=== PATIENT | male | born 1950 | race Two or more races ===

== ENCOUNTER 2021-10-15 21:51 | Inpatient (IN) | payer OTHER ==
[~2021-10-15] VITALS: Ht 157.5 cm; Wt 93.8 kg
[2021-10-15] MEDS: POTASSIUM CHL 20MEQ/50ML 50 ML IV SCH (00:20)
[2021-10-15] MEDS ORDERED: GLYCOPYRROLATE 0.2 MG/ML 1ML VIAL IV ONE (22:00)
[2021-10-15] MEDS ORDERED: GLYCOPYRROLATE 0.2 MG/ML 1ML VIAL ONE (22:09)
[2021-10-15] MEDS ORDERED: SODIUM CHLORIDE 0.9% 500 ML IV ONE (22:15)
[2021-10-15] MEDS ORDERED: ONDANSETRON HCL 4 MG/2 ML VIAL IV ONE (22:15)
[2021-10-15] MEDS ORDERED: LORazepam 2MG/ML-1ML VIAL IV ONE (22:30)
[2021-10-15] MEDS: DOPamine 1600MCG/ML D5W 250 ML IV SCH (22:31)
[2021-10-15 22:50] LABS: Mean Corpuscular Hgb Conc. 30.4 g/dL (32.0-36.0); Red Blood Cells 0.91 10^6/uL (4.5-5.90)
[2021-10-15 22:53] LABS: Hematocrit 9.6 % (41.0-53.0); Mean Corpuscular Hemoglobin 32.3 pg (28.0-32.0); Mean Corpuscular Volume 106.3 fL (80.0-100.0)
[2021-10-15 23:05] LABS: Hemoglobin 2.9 g/dL (13.5-17.5); White Blood Cell 1.5 10^3/uL (4.4-10.8)
[2021-10-15 23:06] LABS: Basophils % (manual) 0 (0.0-2.0); Blast Cells 0; Eosinophils % (manual) 0 (0-7); Metamyelocytes % 0; Myelocytes % 0; Promyelocytes % 0; Reactive Lymphocytes 0
[2021-10-15 23:09] LABS: Anion Gap 13 (5-15); BUN/Creatinine Ratio 15.5; Blood Urea Nitrogen 47 mg/dL (7-18); Chloride 137 mmol/L (98-107); GFR African American 26 mL/min; GFR Non-African American 22 mL/min; Glucose 58 mg/dL (74-106); Sodium 153 mmol/L (136-145)
[2021-10-15 23:14] LABS: Alanine Aminotransferase 18 U/L (16-61); Alkaline Phosphatase 45 U/L (45-117); Aspartate Aminotransferase 17 U/L (15-37); Bilirubin, Total 0.2 mg/dL (0.2-1.0); Total Protein 2.3 g/dL (6.4-8.2)
[2021-10-15 23:22] LABS: Albumin 0.8 g/dL (3.4-5.0); Calcium < 6.0 mg/dL (8.5-10.1); Carbon Dioxide 3 mmol/L (21-32); Potassium 2.4 mmol/L (3.5-5.1)
[2021-10-15] MEDS ORDERED: CALCIUM GLUC 1,000mg/50ml-NS 50 ML IV ONE (23:45)
[2021-10-15] MEDS ORDERED: SODIUM BICARBONATE 8.4 % INJ 50ML VIAL IV ONE (23:45)
[2021-10-15] MEDS ORDERED: ALBUMIN 25% 100 ML IV ONE (23:45)
[2021-10-16] VITALS (13 sets, daily range): BP systolic 102–144; BP diastolic 43–77
[2021-10-16] MEDS ORDERED: SODIUM BICARBONATE 8.4% INJ 50ML SYRINGE ONE (00:18)
[2021-10-16] MEDS ORDERED: FUROSEMIDE 20 MG/2 ML VIAL IV ONE (00:30)
[2021-10-16] MEDS ORDERED: DOCUSATE SOD 100 MG CAP PO PRN (00:30)
[2021-10-16] MEDS ORDERED: ACETAMINOPHEN 325 MG TAB PO PRN (00:30)
[2021-10-16] MEDS ORDERED: ONDANSETRON HCL 4 MG/2 ML VIAL IV PRN (00:30)
[2021-10-16] MEDS ORDERED: DEXTROSE (50%) 50ML SYRG IV PRN (00:30)
[2021-10-16] MEDS ORDERED: HYDROcodone-ACET 5/325MG TAB PO PRN (00:30)
[2021-10-16 01:11] LABS: Band Neutrophils % (manual) 9; Lymphocytes % (manual) 15 (10.0-50.0)
[2021-10-16 01:12] LABS: Monocytes % (manual) 8 (0-12)
[2021-10-16] MEDS: POTASSIUM CHL 20MEQ/50ML 50 ML IV SCH (02:20)
[2021-10-16] MEDS ORDERED: NITROGLYCERIN 0.4 MG SL TAB SL PRN (03:30)
[2021-10-16] MEDS ORDERED: MORPHINE SULFATE INJECTION 2 MG/ML SYRG IV PRN (03:30)
[2021-10-16] MEDS: ACCU-CHEK COMFORT CURVE STRIP VI SCH ×5 (04:00→21:57)
[2021-10-16] MEDS: InsuLIN REG 1unit/0.01ml Soln (100units/ml) SC SCH ×5 (04:00→21:57)
[2021-10-16] MEDS: SODIUM CHLOR 0.9% PF (SALINE LOCK) 10ML VIAL/SYR IV SCH ×2 (06:00→14:19)
[2021-10-16] MEDS: MIDODRINE HCL 10 MG TAB PO SCH ×3 (06:30→22:31)
[2021-10-16] MEDS ORDERED: FUROSEMIDE 20 MG/2 ML VIAL IV SCH (10:00)
[2021-10-16] MEDS: ASCORBIC ACID 500 MG TAB PO SCH ×2 (10:30→22:31)
[2021-10-16] MEDS: ZINC SULFATE 220mg CAP or TAB PO SCH (10:30)
[2021-10-16] MEDS: MULTIPLE VITAMIN TAB PO SCH (10:30)
[2021-10-16] MEDS: FAMOTIDINE (10MG/ML) 2ML VL IV SCH ×2 (14:19→22:30)
[2021-10-16] MEDS ORDERED: SODIUM BICARBONATE 50ML VIAL 100 ML, POTASSIUM CHLORIDE 20 MEQ in D5W 5% 1,000 ML IV SCH (16:45)
[2021-10-16] MEDS ORDERED: levoFLOXacin 250MG 50 ML IV SCH (16:45)
[2021-10-16] MEDS ORDERED: FUR20T PO (18:12)
[2021-10-16 18:48] LABS: Basophils # (auto) 0 10 ^3/uL (0-0.2); Basophils % (auto) 0.2 % (0.0-2.0); Eosinophils # (auto) 0 10 ^3/uL (0-0.8); Eosinophils % (auto) 0.1 % (0.0-7.0); Hematocrit 36.3 % (41.0-53.0); Hemoglobin 11.9 g/dL (13.5-17.5); Lymphocytes # (auto) 0.5 10 ^3/uL (0.4-5.4); Lymphocytes % (auto) 9.1 % (10.0-50.0); Mean Corpuscular Hemoglobin 30.7 pg (28.0-32.0); Mean Corpuscular Hgb Conc. 32.9 g/dL (32.0-36.0); Mean Corpuscular Volume 93.3 fL (80.0-100.0); Monocytes # (auto) 0.6 10 ^3/uL (0-1.3); Monocytes % (auto) 11.4 % (0.0-12.0); Neutrophils # (auto) 4.1 10 ^3/uL (1.6-8.6); Neutrophils % (auto) 79.2 % (37.0-80.0); Nucleated Red Blood Cells % 0.1 %; Red Blood Cells 3.89 10^6/uL (4.5-5.90); Red Cell Distribution Width 17.3 % (11.8-14.3); White Blood Cell 5.2 10^3/uL (4.4-10.8)
[2021-10-16] MEDS ORDERED: NIFE1TAB31 PO (19:00)
[2021-10-16] MEDS ORDERED: CALC-440 PO (19:00)
[2021-10-16] MEDS ORDERED: FER325T PO (19:00)
[2021-10-16] MEDS ORDERED: METO-535 PO (19:00)
[2021-10-16] MEDS ORDERED: FOLI400T15 PO (19:00)
[2021-10-16] MEDS ORDERED: CHOL500035 PO (19:00)
[2021-10-16 19:02] LABS: INR 1.6 (0.9-1.15); Partial Thromboplastin Time 34.7 sec (23.6-33.0)
[2021-10-16 19:37] LABS: Albumin 2.9 g/dL (3.4-5.0); BUN/Creatinine Ratio 13.8; Bilirubin, Total 1.8 mg/dL (0.2-1.0); Total Protein 7.4 g/dL (6.4-8.2)
[2021-10-16 19:42] LABS: Calcium 5.5 mg/dL (8.5-10.1); Potassium 6.8 mmol/L (3.5-5.1)
[2021-10-16] MEDS ORDERED: SOD CHL 0.45% 1,000 ML IV ONE (19:45)
[2021-10-16] MEDS ORDERED: LORazepam 2MG/ML-1ML VIAL IV ONE (20:00)
[2021-10-16] MEDS ORDERED: CALCIUM GLUC 1,000mg/50ml-NS 50 ML IV ONE ×2 (20:30→22:15)
[2021-10-16] MEDS ORDERED: FUROSEMIDE 100 MG/10ML VIAL IV ONE (20:45)
[2021-10-16 21:19] LABS: Basophils # (auto) 0 10 ^3/uL (0-0.2); Basophils % (auto) 0.4 % (0.0-2.0); Eosinophils # (auto) 0 10 ^3/uL (0-0.8); Hematocrit 34.8 % (41.0-53.0); Hemoglobin 11.4 g/dL (13.5-17.5); Lymphocytes # (auto) 0.5 10 ^3/uL (0.4-5.4); Lymphocytes % (auto) 9.9 % (10.0-50.0); Mean Corpuscular Hgb Conc. 32.7 g/dL (32.0-36.0); Mean Corpuscular Volume 94.8 fL (80.0-100.0); Monocytes # (auto) 0.6 10 ^3/uL (0-1.3); Neutrophils # (auto) 4.3 10 ^3/uL (1.6-8.6); Neutrophils % (auto) 78.7 % (37.0-80.0); Nucleated Red Blood Cells % 0.1 %; Red Blood Cells 3.67 10^6/uL (4.5-5.90); White Blood Cell 5.5 10^3/uL (4.4-10.8)
[2021-10-16] MEDS: DOPamine 1600MCG/ML D5W 250 ML IV SCH (21:32)
[2021-10-16 22:04] LABS: Calcium 5.4 mg/dL (8.5-10.1); Potassium 6.6 mmol/L (3.5-5.1)
[2021-10-16] MEDS ORDERED: DEXTROSE (50%) 50ML SYRG IV ONE (22:15)
[2021-10-16] MEDS ORDERED: ALBUTEROL SULF 2.5 MG/0.5ML(0.5%) NEB SOLN NEB ONE (22:15)
[2021-10-16] MEDS ORDERED: InsuLIN REG 1unit/0.01ml Soln (100units/ml) IV ONE (22:15)
[2021-10-16 22:23] LABS: Urine Bacteria FEW /hpf (None Seen); Urine Blood 1+ /uL (Negative); Urine Specific Gravity 1.014 (1.001-1.035); Urine WBC 6 /hpf (0 - 3)
[2021-10-16] MEDS ORDERED: SODIUM BICARBONATE 8.4 % INJ 50ML VIAL IV ONE (22:30)
[2021-10-16] MEDS: SODIUM BICARBONATE 50ML VIAL 150 ML in D5W 5% 1,000 ML IV SCH (22:30)
[2021-10-16] MEDS: SODIUM ZIRCONIUM CYCL 10 GM PAK PO SCH (22:53)
[2021-10-17] MEDS: SODIUM CHLOR 0.9% PF (SALINE LOCK) 10ML VIAL/SYR IV SCH ×4 (01:05→23:50)
[2021-10-17] MEDS: InsuLIN REG 1unit/0.01ml Soln (100units/ml) SC SCH ×6 (02:39→20:00)
[2021-10-17] MEDS: ACCU-CHEK COMFORT CURVE STRIP VI SCH ×6 (02:39→23:19)
[2021-10-17] MEDS: MIDODRINE HCL 10 MG TAB PO SCH ×3 (06:00→18:00)
[2021-10-17 07:09] LABS: Basophils # (auto) 0 10 ^3/uL (0-0.2); Basophils % (auto) 0.6 % (0.0-2.0); Eosinophils # (auto) 0 10 ^3/uL (0-0.8); Eosinophils % (auto) 0.2 % (0.0-7.0); Lymphocytes # (auto) 0.6 10 ^3/uL (0.4-5.4); Lymphocytes % (auto) 11.8 % (10.0-50.0); Mean Corpuscular Hemoglobin 30.3 pg (28.0-32.0); Mean Corpuscular Hgb Conc. 32.3 g/dL (32.0-36.0); Monocytes # (auto) 0.7 10 ^3/uL (0-1.3); Monocytes % (auto) 12.7 % (0.0-12.0); Neutrophils # (auto) 3.9 10 ^3/uL (1.6-8.6); Neutrophils % (auto) 74.7 % (37.0-80.0); Nucleated Red Blood Cells % 0.1 %; Red Blood Cells 3.62 10^6/uL (4.5-5.90); Red Cell Distribution Width 17.8 % (11.8-14.3); White Blood Cell 5.2 10^3/uL (4.4-10.8)
[2021-10-17 07:15] LABS: Folate (Folic Acid) > 24.00 ng/mL (5.38-24)
[2021-10-17 07:16] LABS: Albumin 2.7 g/dL (3.4-5.0); BUN/Creatinine Ratio 13.8; Bilirubin, Total 1.6 mg/dL (0.2-1.0); Total Protein 6.4 g/dL (6.4-8.2)
[2021-10-17] MEDS: SODIUM ZIRCONIUM CYCL 10 GM PAK PO SCH ×3 (08:02→22:00)
[2021-10-17] MEDS: SODIUM BICARBONATE 50ML VIAL 150 ML in D5W 5% 1,000 ML IV SCH ×2 (08:51→23:28)
[2021-10-17] MEDS ORDERED: FUROSEMIDE 20 MG/2 ML VIAL IV SCH ×2 (10:00→20:00)
[2021-10-17 10:16] LABS: Potassium 6.3 mmol/L (3.5-5.1)
[2021-10-17 10:17] LABS: Calcium 5.5 mg/dL (8.5-10.1)
[2021-10-17 10:18] LABS: Phosphorus 10.7 mg/dL (2.5-4.90)
[2021-10-17] MEDS: ZINC SULFATE 220mg CAP or TAB PO SCH (11:30)
[2021-10-17] MEDS ORDERED: CALCIUM GLUC 1,000mg/50ml-NS 50 ML IV ONE (11:30)
[2021-10-17] MEDS: MULTIPLE VITAMIN TAB PO SCH (11:30)
[2021-10-17] MEDS: FAMOTIDINE (10MG/ML) 2ML VL IV SCH ×2 (11:30→23:50)
[2021-10-17] MEDS: ASCORBIC ACID 500 MG TAB PO SCH ×2 (11:30→22:00)
[2021-10-17] MEDS: CALCIUM ACETATE 667 MG CAP PO SCH ×2 (12:23→18:00)
[2021-10-17] MEDS ORDERED: DEXTROSE (50%) 50ML SYRG IV ONE ×2 (13:00→16:30)
[2021-10-17] MEDS ORDERED: ALBUTEROL SULF 2.5 MG/0.5ML(0.5%) NEB SOLN NEB ONE (13:00)
[2021-10-17] MEDS ORDERED: InsuLIN REG 1unit/0.01ml Soln (100units/ml) IV ONE (13:00)
[2021-10-17] MEDS: LORazepam 2MG/ML-1ML VIAL IV PRN (13:17)
[2021-10-17] MEDS: DOPamine 1600MCG/ML D5W 250 ML IV SCH (14:14)
[2021-10-17 14:29] LABS: Alcohol, Urine < 3.0 mg/dL (0-10); Amphetamine Screen, Urine NEGATIVE (NEGATIVE); Barbiturate Scree,Urine NEGATIVE (NEGATIVE); Benzodiazephine Screen, Urine NEGATIVE (NEGATIVE); Cannabinoid Screen, Urine NEGATIVE (NEGATIVE); Cocaine Screen, Urine NEGATIVE (NEGATIVE); Opiate Scree,Urine NEGATIVE (NEGATIVE); Phencyclidine Screen, Urine NEGATIVE (NEGATIVE)
[2021-10-17] MEDS ORDERED: DEXTROSE (50%) 50ML SYRG IV PRN (17:45)
[2021-10-17] MEDS ORDERED: ETOMIDATE (2MG/ML) 20ML VIAL IV ONE ×2 (18:44→19:15)
[2021-10-17] MEDS ORDERED: PROPOFOL 100 ML IV ONE (18:44)
[2021-10-17] MEDS ORDERED: SODIUM BICARBONATE 8.4% INJ 50ML SYRINGE ONE (18:44)
[2021-10-17] MEDS ORDERED: ROCURONIUM 10MG/ML 10ML VIAL IV ONE ×2 (18:44→19:15)
[2021-10-17] MEDS ORDERED: SODIUM CHLORIDE 0.9% 1,000 ML IV ONE (19:15)
[2021-10-17] MEDS ORDERED: SODIUM BICARBONATE 8.4 % INJ 50ML VIAL IV ONE (19:15)
[2021-10-17 19:20] VITALS: BP 99/68
[2021-10-17] MEDS: PROPOFOL 100 ML IV SCH (19:30)
[2021-10-17 21:55] VITALS: BP 151/67
[2021-10-17] MEDS: FUROSEMIDE 40 MG/4 ML VIAL IV SCH (23:14)
[2021-10-17 23:20] LABS: Albumin 2.2 g/dL (3.4-5.0); Potassium 4.3 mmol/L (3.5-5.1)
[2021-10-17 23:23] LABS: BUN/Creatinine Ratio 13.5; Bilirubin, Total 1.3 mg/dL (0.2-1.0); Total Protein 5.4 g/dL (6.4-8.2)
[2021-10-17 23:51] LABS: Calcium 5.2 mg/dL (8.5-10.1)
[2021-10-18] VITALS (9 sets, daily range): BP systolic 108–153; BP diastolic 52–70
[2021-10-18] MEDS: ACCU-CHEK COMFORT CURVE STRIP VI SCH ×6 (00:50→20:21)
[2021-10-18] MEDS: FUROSEMIDE 40 MG/4 ML VIAL IV SCH ×4 (02:22→20:22)
[2021-10-18] MEDS: InsuLIN REG 1unit/0.01ml Soln (100units/ml) SC SCH ×6 (04:00→20:00)
[2021-10-18] MEDS: MIDODRINE HCL 10 MG TAB PO SCH ×3 (06:45→19:00)
[2021-10-18] MEDS: SODIUM ZIRCONIUM CYCL 10 GM PAK PO SCH ×3 (06:45→23:17)
[2021-10-18] MEDS: SODIUM CHLOR 0.9% PF (SALINE LOCK) 10ML VIAL/SYR IV SCH ×3 (06:47→23:17)
[2021-10-18 07:04] LABS: Basophils # (auto) 0 10 ^3/uL (0-0.2); Basophils % (auto) 0.4 % (0.0-2.0); Eosinophils # (auto) 0 10 ^3/uL (0-0.8); Eosinophils % (auto) 0.3 % (0.0-7.0); Hematocrit 31.4 % (41.0-53.0); Hemoglobin 10.7 g/dL (13.5-17.5); Lymphocytes # (auto) 0.3 10 ^3/uL (0.4-5.4); Lymphocytes % (auto) 10.2 % (10.0-50.0); Mean Corpuscular Hemoglobin 31.1 pg (28.0-32.0); Mean Corpuscular Hgb Conc. 33.9 g/dL (32.0-36.0); Mean Corpuscular Volume 91.7 fL (80.0-100.0); Monocytes # (auto) 0.1 10 ^3/uL (0-1.3); Monocytes % (auto) 3.6 % (0.0-12.0); Neutrophils # (auto) 2.4 10 ^3/uL (1.6-8.6); Neutrophils % (auto) 85.5 % (37.0-80.0); Nucleated Red Blood Cells % 0.1 %; Red Blood Cells 3.42 10^6/uL (4.5-5.90); Red Cell Distribution Width 17.4 % (11.8-14.3); White Blood Cell 2.8 10^3/uL (4.4-10.8)
[2021-10-18 07:29] LABS: BUN/Creatinine Ratio 14.3
[2021-10-18] MEDS: CALCIUM ACETATE 667 MG CAP PO SCH ×3 (08:00→18:49)
[2021-10-18 08:13] LABS: Calcium 5.1 mg/dL (8.5-10.1)
[2021-10-18] MEDS: SODIUM BICARBONATE 50ML VIAL 150 ML in D5W 5% 1,000 ML IV SCH (08:15)
[2021-10-18] MEDS: MEROPENEM 500MG IVPB 50 ML IV SCH (10:28)
[2021-10-18] MEDS: ZINC SULFATE 220mg CAP or TAB PO SCH (11:20)
[2021-10-18] MEDS: MULTIPLE VITAMIN TAB PO SCH (11:21)
[2021-10-18] MEDS: ASCORBIC ACID 500 MG TAB PO SCH ×2 (11:21→23:18)
[2021-10-18] MEDS: DOPamine 1600MCG/ML D5W 250 ML IV SCH (13:35)
[2021-10-18] MEDS ORDERED: CALCIUM GLUC 1,000mg/50ml-NS 50 ML IV ONE (19:15)
[2021-10-18] MEDS ORDERED: SODIUM CHLORIDE 0.9% 1,000 ML IV SCH (19:30)
[2021-10-18] MEDS: DexAMETHasone SOD PHOS 10MG/1ML VIAL INJ IV SCH (19:57)
[2021-10-18] MEDS: PROPOFOL 100 ML IV SCH (19:58)
[2021-10-18] MEDS: D5W/SOD CHLO 0.9% 1,000 ML IV SCH (21:09)
[2021-10-18 22:32] LABS: Anion Gap 16 (5-15); BUN/Creatinine Ratio 14.6; Carbon Dioxide 29 mmol/L (21-32); Chloride 99 mmol/L (98-107); GFR African American 8 mL/min; GFR Non-African American 7 mL/min; Glucose 95 mg/dL (74-106); Potassium 3.8 mmol/L (3.5-5.1); Sodium 144 mmol/L (136-145)
[2021-10-18 23:07] LABS: Blood Urea Nitrogen 120 mg/dL (7-18)
[2021-10-18 23:49] LABS: Calcium < 5.0 mg/dL (8.5-10.1)
[2021-10-19] VITALS (40 sets, daily range): BP systolic 119–168; BP diastolic 55–90
[2021-10-19] MEDS ORDERED: CALCIUM GLUC 1,000mg/50ml-NS 50 ML IV ONE ×2 (00:15→12:30)
[2021-10-19] MEDS: ACCU-CHEK COMFORT CURVE STRIP VI SCH ×6 (00:44→23:07)
[2021-10-19] MEDS: InsuLIN REG 1unit/0.01ml Soln (100units/ml) SC SCH ×5 (00:44→18:00)
[2021-10-19] MEDS: PROPOFOL 100 ML IV SCH ×5 (00:58→23:06)
[2021-10-19] MEDS: FUROSEMIDE 40 MG/4 ML VIAL IV SCH ×4 (03:23→23:06)
[2021-10-19] MEDS: SODIUM CHLOR 0.9% PF (SALINE LOCK) 10ML VIAL/SYR IV SCH ×3 (06:41→23:06)
[2021-10-19] MEDS: MIDODRINE HCL 10 MG TAB PO SCH ×3 (06:42→18:00)
[2021-10-19 07:06] LABS: Immunoglobulin G, Serum 1211 mg/dL (603-1613)
[2021-10-19] MEDS: CALCIUM ACETATE 667 MG CAP PO SCH ×3 (07:56→18:15)
[2021-10-19] MEDS: DOPamine 1600MCG/ML D5W 250 ML IV SCH (08:31)
[2021-10-19 08:44] LABS: Basophils # (auto) 0 10 ^3/uL (0-0.2); Basophils % (auto) 0.1 % (0.0-2.0); Eosinophils # (auto) 0 10 ^3/uL (0-0.8); Hematocrit 32.5 % (41.0-53.0); Hemoglobin 10.9 g/dL (13.5-17.5); Lymphocytes # (auto) 0.5 10 ^3/uL (0.4-5.4); Lymphocytes % (auto) 6.6 % (10.0-50.0); Mean Corpuscular Hemoglobin 30.9 pg (28.0-32.0); Mean Corpuscular Hgb Conc. 33.5 g/dL (32.0-36.0); Mean Corpuscular Volume 92.2 fL (80.0-100.0); Monocytes # (auto) 0.2 10 ^3/uL (0-1.3); Monocytes % (auto) 2.4 % (0.0-12.0); Neutrophils # (auto) 6.2 10 ^3/uL (1.6-8.6); Neutrophils % (auto) 90.9 % (37.0-80.0); Nucleated Red Blood Cells % 0.1 %; Red Blood Cells 3.52 10^6/uL (4.5-5.90); White Blood Cell 6.9 10^3/uL (4.4-10.8)
[2021-10-19 09:25] LABS: Chloride 101 mmol/L (98-107); Sodium 141 mmol/L (136-145)
[2021-10-19 09:31] LABS: Anion Gap 11 (5-15); BUN/Creatinine Ratio 13.5; Carbon Dioxide 29 mmol/L (21-32); GFR African American 9 mL/min; GFR Non-African American 7 mL/min; Glucose 165 mg/dL (74-106)
[2021-10-19 09:47] LABS: Blood Urea Nitrogen 109 mg/dL (7-18); Calcium < 5.0 mg/dL (8.5-10.1)
[2021-10-19] MEDS: D5W/SOD CHLO 0.9% 1,000 ML IV SCH (10:20)
[2021-10-19] MEDS: MEROPENEM 500MG IVPB 50 ML IV SCH (10:20)
[2021-10-19] MEDS: DexAMETHasone SOD PHOS 10MG/1ML VIAL INJ IV SCH (10:28)
[2021-10-19] MEDS: MULTIPLE VITAMIN TAB PO SCH (10:29)
[2021-10-19] MEDS: ASCORBIC ACID 500 MG TAB PO SCH ×2 (10:29→23:06)
[2021-10-19] MEDS: ZINC SULFATE 220mg CAP or TAB PO SCH (10:29)
[2021-10-19 14:09] LABS: Hepatitis A Ab IgM Negative; Hepatitis B Core IgM Negative; Hepatitis C Antibody Negative (Negative)
[2021-10-19] MEDS: SOD CHL 0.45% 1,000 ML IV SCH ×2 (15:00→23:07)
[2021-10-19] MEDS ORDERED: VANCOMYCIN 1GM/250ML 250 ML IV ONE (17:15)
[2021-10-19] MEDS ORDERED: VANCOMYCIN PER PHARMACY 0 MG IV SCH (17:15)
[2021-10-20] VITALS (82 sets, daily range): BP systolic 126–163; BP diastolic 32–72
[2021-10-20] MEDS: InsuLIN REG 1unit/0.01ml Soln (100units/ml) SC SCH ×5 (00:11→23:18)
[2021-10-20] MEDS: FUROSEMIDE 40 MG/4 ML VIAL IV SCH ×4 (02:47→23:08)
[2021-10-20 04:31] LABS: Basophils # (auto) 0 10 ^3/uL (0-0.2); Eosinophils # (auto) 0 10 ^3/uL (0-0.8); Hematocrit 31.6 % (41.0-53.0); Hemoglobin 10.5 g/dL (13.5-17.5); Lymphocytes # (auto) 0.7 10 ^3/uL (0.4-5.4); Lymphocytes % (auto) 9.8 % (10.0-50.0); Mean Corpuscular Hemoglobin 30.8 pg (28.0-32.0); Mean Corpuscular Hgb Conc. 33.1 g/dL (32.0-36.0); Monocytes # (auto) 0.2 10 ^3/uL (0-1.3); Monocytes % (auto) 3.3 % (0.0-12.0); Neutrophils # (auto) 6.6 10 ^3/uL (1.6-8.6); Neutrophils % (auto) 86.9 % (37.0-80.0); Nucleated Red Blood Cells % 0.1 %; Red Cell Distribution Width 17.1 % (11.8-14.3); White Blood Cell 7.5 10^3/uL (4.4-10.8)
[2021-10-20 04:51] LABS: Anion Gap 18 (5-15); Carbon Dioxide 25 mmol/L (21-32); Chloride 97 mmol/L (98-107); Glucose 129 mg/dL (74-106); Potassium 4.2 mmol/L (3.5-5.1); Sodium 140 mmol/L (136-145)
[2021-10-20 04:54] LABS: BUN/Creatinine Ratio 14.7; GFR African American 9 mL/min; GFR Non-African American 7 mL/min
[2021-10-20] MEDS: SODIUM CHLOR 0.9% PF (SALINE LOCK) 10ML VIAL/SYR IV SCH ×3 (05:01→23:08)
[2021-10-20] MEDS: MIDODRINE HCL 10 MG TAB PO SCH ×3 (05:01→18:00)
[2021-10-20] MEDS: ACCU-CHEK COMFORT CURVE STRIP VI SCH ×4 (05:01→23:09)
[2021-10-20] MEDS: DOPamine 1600MCG/ML D5W 250 ML IV SCH (05:05)
[2021-10-20 05:42] LABS: Blood Urea Nitrogen 116 mg/dL (7-18); Calcium < 5.0 mg/dL (8.5-10.1)
[2021-10-20] MEDS ORDERED: CALCIUM GLUC 1,000mg/50ml-NS 50 ML IV ONE ×2 (06:00→07:00)
[2021-10-20] MEDS ORDERED: CALCIUM GLUC 1,000mg/50ml-NS 100 ML IV ONE (06:01)
[2021-10-20] MEDS: CALCIUM ACETATE 667 MG CAP PO SCH ×3 (10:02→18:00)
[2021-10-20] MEDS: DexAMETHasone SOD PHOS 10MG/1ML VIAL INJ IV SCH (10:02)
[2021-10-20] MEDS: FAMOTIDINE (10MG/ML) 2ML VL IV SCH (10:02)
[2021-10-20] MEDS: ZINC SULFATE 220mg CAP or TAB PO SCH (10:03)
[2021-10-20] MEDS: ASCORBIC ACID 500 MG TAB PO SCH ×2 (10:03→23:08)
[2021-10-20] MEDS: MULTIPLE VITAMIN TAB PO SCH (10:03)
[2021-10-20] MEDS: SOD CHL 0.45% 1,000 ML IV SCH ×2 (10:44→23:08)
[2021-10-20] MEDS ORDERED: VANCOMYCIN 500 MG in D5W 5% 100 ML IV ONE (17:00)
[2021-10-20] MEDS ORDERED: Nepro With Carb Steady 1 Liter Bottle GT SCH (19:00)
[2021-10-20] MEDS: PROPOFOL 100 ML IV SCH (23:56)
[2021-10-21] VITALS (75 sets, daily range): BP systolic 112–142; BP diastolic 59–72
[2021-10-21] MEDS: FUROSEMIDE 40 MG/4 ML VIAL IV SCH ×4 (01:22→20:50)
[2021-10-21] MEDS: DOPamine 1600MCG/ML D5W 250 ML IV SCH ×2 (01:39→22:13)
[2021-10-21] MEDS: MIDODRINE HCL 10 MG TAB PO SCH ×3 (05:23→17:32)
[2021-10-21] MEDS: ACCU-CHEK COMFORT CURVE STRIP VI SCH ×3 (05:24→18:05)
[2021-10-21] MEDS: InsuLIN REG 1unit/0.01ml Soln (100units/ml) SC SCH ×3 (05:24→18:05)
[2021-10-21] MEDS: SODIUM CHLOR 0.9% PF (SALINE LOCK) 10ML VIAL/SYR IV SCH ×3 (05:25→22:00)
[2021-10-21] MEDS: SOD CHL 0.45% 1,000 ML IV SCH (05:25)
[2021-10-21] MEDS: CALCIUM ACETATE 667 MG CAP PO SCH ×2 (09:05→17:45)
[2021-10-21] MEDS: DexAMETHasone SOD PHOS 10MG/1ML VIAL INJ IV SCH (09:30)
[2021-10-21] MEDS: ZINC SULFATE 220mg CAP or TAB PO SCH (09:30)
[2021-10-21] MEDS: ASCORBIC ACID 500 MG TAB PO SCH ×2 (09:30→22:00)
[2021-10-21] MEDS: MULTIPLE VITAMIN TAB PO SCH (09:30)
[2021-10-21 10:33] LABS: Basophils # (auto) 0 10 ^3/uL (0-0.2); Basophils % (auto) 0.1 % (0.0-2.0); Eosinophils # (auto) 0 10 ^3/uL (0-0.8); Hematocrit 31.6 % (41.0-53.0); Hemoglobin 10.4 g/dL (13.5-17.5); Lymphocytes # (auto) 1.3 10 ^3/uL (0.4-5.4); Lymphocytes % (auto) 14.3 % (10.0-50.0); Mean Corpuscular Hemoglobin 30.7 pg (28.0-32.0); Mean Corpuscular Hgb Conc. 32.8 g/dL (32.0-36.0); Mean Corpuscular Volume 93.4 fL (80.0-100.0); Monocytes # (auto) 0.5 10 ^3/uL (0-1.3); Monocytes % (auto) 5.9 % (0.0-12.0); Neutrophils # (auto) 7.1 10 ^3/uL (1.6-8.6); Neutrophils % (auto) 79.7 % (37.0-80.0); Red Blood Cells 3.38 10^6/uL (4.5-5.90); Red Cell Distribution Width 16.9 % (11.8-14.3); White Blood Cell 8.9 10^3/uL (4.4-10.8)
[2021-10-21 10:35] LABS: Anion Gap 15 (5-15); BUN/Creatinine Ratio 15.9; Carbon Dioxide 25 mmol/L (21-32); Chloride 96 mmol/L (98-107); GFR African American 9 mL/min; GFR Non-African American 7 mL/min; Glucose 146 mg/dL (74-106); Potassium 4.3 mmol/L (3.5-5.1); Sodium 136 mmol/L (136-145)
[2021-10-21 10:48] LABS: Blood Urea Nitrogen 125 mg/dL (7-18)
[2021-10-21 10:49] LABS: Calcium < 5.0 mg/dL (8.5-10.1)
[2021-10-21] MEDS ORDERED: VANCOMYCIN 500 MG in D5W 5% 100 ML IV ONE (17:00)
[2021-10-22] VITALS (86 sets, daily range): BP systolic 107–182; BP diastolic 53–79
[2021-10-22] MEDS: FUROSEMIDE 40 MG/4 ML VIAL IV SCH ×4 (02:24→20:00)
[2021-10-22 05:04] LABS: Basophils # (auto) 0 10 ^3/uL (0-0.2); Basophils % (auto) 0.2 % (0.0-2.0); Eosinophils # (auto) 0 10 ^3/uL (0-0.8); Eosinophils % (auto) 0.1 % (0.0-7.0); Hematocrit 32.6 % (41.0-53.0); Hemoglobin 10.8 g/dL (13.5-17.5); Lymphocytes % (auto) 10.9 % (10.0-50.0); Mean Corpuscular Hemoglobin 30.9 pg (28.0-32.0); Mean Corpuscular Hgb Conc. 33.2 g/dL (32.0-36.0); Mean Corpuscular Volume 93.2 fL (80.0-100.0); Monocytes # (auto) 0.6 10 ^3/uL (0-1.3); Monocytes % (auto) 6.6 % (0.0-12.0); Neutrophils # (auto) 7.5 10 ^3/uL (1.6-8.6); Neutrophils % (auto) 82.2 % (37.0-80.0); Nucleated Red Blood Cells % 0.1 %; White Blood Cell 9.2 10^3/uL (4.4-10.8)
[2021-10-22 05:22] LABS: Chloride 97 mmol/L (98-107); Sodium 138 mmol/L (136-145)
[2021-10-22 05:32] LABS: Anion Gap 18 (5-15); BUN/Creatinine Ratio 17.1; Carbon Dioxide 23 mmol/L (21-32); GFR African American 9 mL/min; GFR Non-African American 7 mL/min; Glucose 152 mg/dL (74-106)
[2021-10-22] MEDS: MIDODRINE HCL 10 MG TAB PO SCH ×3 (06:00→16:51)
[2021-10-22] MEDS: ACCU-CHEK COMFORT CURVE STRIP VI SCH ×4 (06:46→16:56)
[2021-10-22] MEDS: SODIUM CHLOR 0.9% PF (SALINE LOCK) 10ML VIAL/SYR IV SCH ×3 (06:46→22:00)
[2021-10-22] MEDS: InsuLIN REG 1unit/0.01ml Soln (100units/ml) SC SCH ×4 (06:47→16:55)
[2021-10-22 07:49] LABS: Blood Urea Nitrogen 133 mg/dL (7-18); Calcium < 5.0 mg/dL (8.5-10.1)
[2021-10-22] MEDS: CALCIUM ACETATE 667 MG CAP PO SCH ×3 (08:00→18:26)
[2021-10-22] MEDS: DexAMETHasone SOD PHOS 10MG/1ML VIAL INJ IV SCH (10:02)
[2021-10-22] MEDS: MULTIPLE VITAMIN TAB PO SCH (10:02)
[2021-10-22] MEDS: FAMOTIDINE (10MG/ML) 2ML VL IV SCH (10:02)
[2021-10-22] MEDS: ASCORBIC ACID 500 MG TAB PO SCH ×2 (10:02→22:00)
[2021-10-22] MEDS: ZINC SULFATE 220mg CAP or TAB PO SCH (10:02)
[2021-10-22] MEDS: DOPamine 1600MCG/ML D5W 250 ML IV SCH (18:47)
[2021-10-22] MEDS: PROPOFOL 100 ML IV SCH (19:15)
[2021-10-22] MEDS: CALCIUM CARB 500 MG CHEW TAB PO SCH (22:00)
[2021-10-23] VITALS (26 sets, daily range): BP systolic 95–147; BP diastolic 46–77
[2021-10-23] MEDS: ACCU-CHEK COMFORT CURVE STRIP VI SCH ×4 (00:21→18:00)
[2021-10-23] MEDS: FUROSEMIDE 40 MG/4 ML VIAL IV SCH ×4 (02:15→20:00)
[2021-10-23 04:26] LABS: Basophils # (auto) 0 10 ^3/uL (0-0.2); Basophils % (auto) 0.1 % (0.0-2.0); Eosinophils # (auto) 0 10 ^3/uL (0-0.8); Eosinophils % (auto) 0.2 % (0.0-7.0); Hematocrit 32.4 % (41.0-53.0); Hemoglobin 10.6 g/dL (13.5-17.5); Lymphocytes # (auto) 0.7 10 ^3/uL (0.4-5.4); Lymphocytes % (auto) 13.4 % (10.0-50.0); Mean Corpuscular Hemoglobin 30.5 pg (28.0-32.0); Mean Corpuscular Hgb Conc. 32.7 g/dL (32.0-36.0); Mean Corpuscular Volume 93.2 fL (80.0-100.0); Monocytes # (auto) 0.5 10 ^3/uL (0-1.3); Monocytes % (auto) 8.9 % (0.0-12.0); Neutrophils # (auto) 4.3 10 ^3/uL (1.6-8.6); Neutrophils % (auto) 77.4 % (37.0-80.0); Nucleated Red Blood Cells % 0.2 %; Red Blood Cells 3.47 10^6/uL (4.5-5.90); White Blood Cell 5.6 10^3/uL (4.4-10.8)
[2021-10-23 04:47] LABS: Albumin 1.5 g/dL (3.4-5.0); Anion Gap 16 (5-15); Carbon Dioxide 23 mmol/L (21-32); Chloride 97 mmol/L (98-107); Glucose 84 mg/dL (74-106); Potassium 4.2 mmol/L (3.5-5.1); Sodium 136 mmol/L (136-145)
[2021-10-23 04:51] LABS: Alanine Aminotransferase 19 U/L (16-61); Alkaline Phosphatase 83 U/L (45-117); Aspartate Aminotransferase 24 U/L (15-37); BUN/Creatinine Ratio 17.9; Bilirubin, Total 0.5 mg/dL (0.2-1.0); GFR African American 9 mL/min; GFR Non-African American 7 mL/min; Total Protein 4.8 g/dL (6.4-8.2)
[2021-10-23 04:54] LABS: Blood Urea Nitrogen 143 mg/dL (7-18); Calcium < 5.0 mg/dL (8.5-10.1)
[2021-10-23] MEDS: MIDODRINE HCL 10 MG TAB PO SCH ×3 (05:58→18:00)
[2021-10-23] MEDS: InsuLIN REG 1unit/0.01ml Soln (100units/ml) SC SCH ×4 (05:58→18:00)
[2021-10-23] MEDS: SODIUM CHLOR 0.9% PF (SALINE LOCK) 10ML VIAL/SYR IV SCH ×3 (05:59→22:00)
[2021-10-23] MEDS: CALCIUM ACETATE 667 MG CAP PO SCH ×3 (10:20→18:00)
[2021-10-23] MEDS: DexAMETHasone SOD PHOS 10MG/1ML VIAL INJ IV SCH (10:20)
[2021-10-23] MEDS: MULTIPLE VITAMIN TAB PO SCH (10:21)
[2021-10-23] MEDS: ZINC SULFATE 220mg CAP or TAB PO SCH (10:21)
[2021-10-23] MEDS: ASCORBIC ACID 500 MG TAB PO SCH ×2 (10:21→22:00)
[2021-10-23] MEDS: CALCIUM CARB 500 MG CHEW TAB PO SCH ×2 (10:21→22:00)
[2021-10-23] MEDS: DOPamine 1600MCG/ML D5W 250 ML IV SCH (15:21)
[2021-10-23] MEDS: PROPOFOL 100 ML IV SCH (19:15)
[2021-10-24] VITALS (22 sets, daily range): BP systolic 124–139; BP diastolic 66–78
[2021-10-24] MEDS: FUROSEMIDE 40 MG/4 ML VIAL IV SCH ×4 (02:28→20:00)
[2021-10-24] MEDS: ACCU-CHEK COMFORT CURVE STRIP VI SCH ×5 (05:40→23:41)
[2021-10-24] MEDS: MIDODRINE HCL 10 MG TAB PO SCH ×3 (05:42→18:00)
[2021-10-24] MEDS: SODIUM CHLOR 0.9% PF (SALINE LOCK) 10ML VIAL/SYR IV SCH ×3 (05:42→21:18)
[2021-10-24] MEDS: InsuLIN REG 1unit/0.01ml Soln (100units/ml) SC SCH ×5 (05:42→23:41)
[2021-10-24] MEDS: CALCIUM ACETATE 667 MG CAP PO SCH ×3 (08:00→18:00)
[2021-10-24] MEDS: MULTIPLE VITAMIN TAB PO SCH (10:00)
[2021-10-24] MEDS: ASCORBIC ACID 500 MG TAB PO SCH ×2 (10:00→21:18)
[2021-10-24] MEDS: ZINC SULFATE 220mg CAP or TAB PO SCH (10:00)
[2021-10-24] MEDS: CALCIUM CARB 500 MG CHEW TAB PO SCH ×2 (10:00→21:18)
[2021-10-24 10:11] LABS: Chloride 97 mmol/L (98-107); Sodium 137 mmol/L (136-145)
[2021-10-24 10:16] LABS: Anion Gap 17 (5-15); BUN/Creatinine Ratio 17.5; Carbon Dioxide 23 mmol/L (21-32); GFR African American 8 mL/min; GFR Non-African American 7 mL/min; Glucose 63 mg/dL (74-106)
[2021-10-24] MEDS: FAMOTIDINE (10MG/ML) 2ML VL IV SCH (10:17)
[2021-10-24] MEDS: DexAMETHasone SOD PHOS 10MG/1ML VIAL INJ IV SCH (10:18)
[2021-10-24 10:28] LABS: Basophils # (auto) 0 10 ^3/uL (0-0.2); Basophils % (auto) 0.3 % (0.0-2.0); Eosinophils # (auto) 0 10 ^3/uL (0-0.8); Eosinophils % (auto) 0.5 % (0.0-7.0); Hematocrit 29.9 % (41.0-53.0); Hemoglobin 9.9 g/dL (13.5-17.5); Lymphocytes % (auto) 17.8 % (10.0-50.0); Mean Corpuscular Hemoglobin 30.9 pg (28.0-32.0); Mean Corpuscular Hgb Conc. 33.2 g/dL (32.0-36.0); Mean Corpuscular Volume 93.2 fL (80.0-100.0); Monocytes # (auto) 0.6 10 ^3/uL (0-1.3); Monocytes % (auto) 10.6 % (0.0-12.0); Neutrophils # (auto) 3.9 10 ^3/uL (1.6-8.6); Neutrophils % (auto) 70.8 % (37.0-80.0); Nucleated Red Blood Cells % 0.1 %; Red Blood Cells 3.21 10^6/uL (4.5-5.90); Red Cell Distribution Width 16.5 % (11.8-14.3); White Blood Cell 5.5 10^3/uL (4.4-10.8)
[2021-10-24 10:56] LABS: Calcium < 5.0 mg/dL (8.5-10.1)
[2021-10-24 10:57] LABS: Blood Urea Nitrogen 145 mg/dL (7-18)
[2021-10-24] MEDS: DOPamine 1600MCG/ML D5W 250 ML IV SCH (11:55)
[2021-10-24 14:38] LABS: INR 1.27 (0.9-1.15); Partial Thromboplastin Time 33.6 sec (23.6-33.0)
[2021-10-24] MEDS: PROPOFOL 100 ML IV SCH (19:15)
[2021-10-25] VITALS (8 sets, daily range): BP systolic 130–157; BP diastolic 71–91
[2021-10-25] MEDS: FUROSEMIDE 40 MG/4 ML VIAL IV SCH ×4 (01:44→20:44)
[2021-10-25] MEDS: ACCU-CHEK COMFORT CURVE STRIP VI SCH ×3 (06:35→18:30)
[2021-10-25] MEDS: SODIUM CHLOR 0.9% PF (SALINE LOCK) 10ML VIAL/SYR IV SCH ×3 (06:35→21:38)
[2021-10-25] MEDS: MIDODRINE HCL 10 MG TAB PO SCH ×3 (06:36→18:00)
[2021-10-25] MEDS: InsuLIN REG 1unit/0.01ml Soln (100units/ml) SC SCH ×3 (06:36→18:00)
[2021-10-25] MEDS: DEXTROSE (50%) 50ML SYRG IV PRN (06:41)
[2021-10-25] MEDS: CALCIUM ACETATE 667 MG CAP PO SCH ×3 (08:00→18:00)
[2021-10-25] MEDS: ASCORBIC ACID 500 MG TAB PO SCH ×2 (10:00→21:39)
[2021-10-25] MEDS: CALCIUM CARB 500 MG CHEW TAB PO SCH ×2 (10:00→21:38)
[2021-10-25] MEDS: ZINC SULFATE 220mg CAP or TAB PO SCH (10:00)
[2021-10-25] MEDS: MULTIPLE VITAMIN TAB PO SCH (10:00)
[2021-10-25] MEDS: DexAMETHasone SOD PHOS 10MG/1ML VIAL INJ IV SCH (10:27)
[2021-10-25 10:36] LABS: Basophils # (auto) 0 10 ^3/uL (0-0.2); Basophils % (auto) 0.8 % (0.0-2.0); Eosinophils # (auto) 0.1 10 ^3/uL (0-0.8); Eosinophils % (auto) 1.6 % (0.0-7.0); Hematocrit 31.9 % (41.0-53.0); Hemoglobin 10.4 g/dL (13.5-17.5); Lymphocytes # (auto) 0.7 10 ^3/uL (0.4-5.4); Lymphocytes % (auto) 12.4 % (10.0-50.0); Mean Corpuscular Hemoglobin 30.6 pg (28.0-32.0); Mean Corpuscular Hgb Conc. 32.4 g/dL (32.0-36.0); Mean Corpuscular Volume 94.3 fL (80.0-100.0); Monocytes # (auto) 0.4 10 ^3/uL (0-1.3); Monocytes % (auto) 6.9 % (0.0-12.0); Neutrophils # (auto) 4.4 10 ^3/uL (1.6-8.6); Neutrophils % (auto) 78.3 % (37.0-80.0); Nucleated Red Blood Cells % 0.1 %; Red Blood Cells 3.38 10^6/uL (4.5-5.90); Red Cell Distribution Width 16.8 % (11.8-14.3); White Blood Cell 5.6 10^3/uL (4.4-10.8)
[2021-10-25 10:43] LABS: Anion Gap 19 (5-15); BUN/Creatinine Ratio 17.4; Carbon Dioxide 22 mmol/L (21-32); Chloride 98 mmol/L (98-107); GFR African American 8 mL/min; GFR Non-African American 7 mL/min; Glucose 98 mg/dL (74-106); Potassium 3.8 mmol/L (3.5-5.1); Sodium 139 mmol/L (136-145)
[2021-10-25] MEDS ORDERED: fentaNYL CITRATE 100 MCG/2 ML VL ONE (12:28)
[2021-10-25] MEDS ORDERED: LIDOCAINE 2%HCL (LOCAL ANESTH.) INJ 20ML MDV ONE (12:33)
[2021-10-25] MEDS ORDERED: HEPARIN SODIUM (PORCINE) 5000 UNITS/ML 1ML VIAL ONE (12:41)
[2021-10-25 12:48] LABS: Blood Urea Nitrogen 148 mg/dL (7-18); Calcium < 5.0 mg/dL (8.5-10.1)
[2021-10-26] MEDS: ACCU-CHEK COMFORT CURVE STRIP VI SCH ×5 (00:15→23:27)
[2021-10-26] MEDS: FUROSEMIDE 40 MG/4 ML VIAL IV SCH ×4 (01:34→23:25)
[2021-10-26 05:00] VITALS: BP 143/82
[2021-10-26] MEDS: InsuLIN REG 1unit/0.01ml Soln (100units/ml) SC SCH ×5 (06:00→23:27)
[2021-10-26] MEDS: MIDODRINE HCL 10 MG TAB PO SCH ×3 (06:00→18:00)
[2021-10-26] MEDS: SODIUM CHLOR 0.9% PF (SALINE LOCK) 10ML VIAL/SYR IV SCH ×3 (06:00→23:26)
[2021-10-26] MEDS ORDERED: SODIUM CHL 0.9% 1000 ML BAG XX ONE (07:00)
[2021-10-26] MEDS: CALCIUM ACETATE 667 MG CAP PO SCH ×3 (07:55→18:00)
[2021-10-26 08:38] VITALS: BP 140/79
[2021-10-26] MEDS: CALCIUM CARB 500 MG CHEW TAB PO SCH ×2 (10:00→23:26)
[2021-10-26] MEDS: ASCORBIC ACID 500 MG TAB PO SCH ×2 (10:00→23:27)
[2021-10-26] MEDS: MULTIPLE VITAMIN TAB PO SCH (10:00)
[2021-10-26] MEDS: ZINC SULFATE 220mg CAP or TAB PO SCH (10:00)
[2021-10-26 12:38] VITALS: BP 121/66
[2021-10-26] MEDS: DexAMETHasone SOD PHOS 10MG/1ML VIAL INJ IV SCH (15:26)
[2021-10-26] MEDS: FAMOTIDINE (10MG/ML) 2ML VL IV SCH (15:26)
[2021-10-26] MEDS ORDERED: VANCOMYCIN 1GM/250ML 250 ML IV ONE (16:00)
[2021-10-26 17:00] VITALS: BP 143/77
[2021-10-26 17:18] LABS: Basophils # (auto) 0 10 ^3/uL (0-0.2); Basophils % (auto) 0.6 % (0.0-2.0); Eosinophils # (auto) 0 10 ^3/uL (0-0.8); Eosinophils % (auto) 0.4 % (0.0-7.0); Hematocrit 32.8 % (41.0-53.0); Hemoglobin 10.5 g/dL (13.5-17.5); Lymphocytes # (auto) 0.8 10 ^3/uL (0.4-5.4); Lymphocytes % (auto) 11.8 % (10.0-50.0); Mean Corpuscular Hemoglobin 30.7 pg (28.0-32.0); Mean Corpuscular Hgb Conc. 32.2 g/dL (32.0-36.0); Mean Corpuscular Volume 95.3 fL (80.0-100.0); Monocytes # (auto) 0.4 10 ^3/uL (0-1.3); Monocytes % (auto) 6.4 % (0.0-12.0); Neutrophils # (auto) 5.5 10 ^3/uL (1.6-8.6); Neutrophils % (auto) 80.8 % (37.0-80.0); Nucleated Red Blood Cells % 0.1 %; Red Blood Cells 3.44 10^6/uL (4.5-5.90); Red Cell Distribution Width 16.8 % (11.8-14.3); White Blood Cell 6.7 10^3/uL (4.4-10.8)
[2021-10-26] MEDS ORDERED: EPOETIN ALFA-EPBX 10,000 UNIT/1ML VIAL SC ONE (21:00)
[2021-10-27] MEDS: FUROSEMIDE 40 MG/4 ML VIAL IV SCH ×4 (03:07→23:57)
[2021-10-27 05:00] VITALS: BP 133/86
[2021-10-27] MEDS: InsuLIN REG 1unit/0.01ml Soln (100units/ml) SC SCH ×4 (06:00→20:00)
[2021-10-27] MEDS: ACCU-CHEK COMFORT CURVE STRIP VI SCH ×4 (06:17→20:00)
[2021-10-27] MEDS: SODIUM CHLOR 0.9% PF (SALINE LOCK) 10ML VIAL/SYR IV SCH ×3 (06:17→20:53)
[2021-10-27] MEDS: MIDODRINE HCL 10 MG TAB PO SCH ×4 (07:06→20:56)
[2021-10-27] MEDS: CALCIUM ACETATE 667 MG CAP PO SCH ×3 (08:00→18:00)
[2021-10-27] MEDS: NYSTATIN (MOUTH-THROAT) 500,000 UNITS/5 ML SUSP MT SCH ×4 (08:45→20:54)
[2021-10-27 09:00] VITALS: BP 132/67
[2021-10-27] MEDS: MULTIPLE VITAMIN TAB PO SCH (10:00)
[2021-10-27] MEDS: CALCIUM CARB 500 MG CHEW TAB PO SCH ×2 (10:00→20:56)
[2021-10-27] MEDS: ASCORBIC ACID 500 MG TAB PO SCH ×2 (10:00→20:55)
[2021-10-27] MEDS: DexAMETHasone SOD PHOS 10MG/1ML VIAL INJ IV SCH (10:00)
[2021-10-27] MEDS: ZINC SULFATE 220mg CAP or TAB PO SCH (10:00)
[2021-10-27] MEDS: DEXTROSE (50%) 50ML SYRG IV PRN (12:00)
[2021-10-27 12:57] VITALS: BP 147/80
[2021-10-27] MEDS ORDERED: DEXTROSE 10% 1,000 ML IV ONE ×2 (13:15→15:15)
[2021-10-27] MEDS ORDERED: DEXTROSE (50%) 50ML SYRG IV PRN (15:15)
[2021-10-27 17:00] VITALS: BP 142/71
[2021-10-27 17:59] LABS: Basophils # (auto) 0.1 10 ^3/uL (0-0.2); Basophils % (auto) 0.9 % (0.0-2.0); Eosinophils # (auto) 0 10 ^3/uL (0-0.8); Eosinophils % (auto) 0.1 % (0.0-7.0); Hematocrit 30.6 % (41.0-53.0); Hemoglobin 9.7 g/dL (13.5-17.5); Lymphocytes # (auto) 0.3 10 ^3/uL (0.4-5.4); Lymphocytes % (auto) 4.7 % (10.0-50.0); Mean Corpuscular Hemoglobin 30.5 pg (28.0-32.0); Mean Corpuscular Hgb Conc. 31.8 g/dL (32.0-36.0); Mean Corpuscular Volume 95.8 fL (80.0-100.0); Monocytes # (auto) 0.1 10 ^3/uL (0-1.3); Neutrophils # (auto) 6.3 10 ^3/uL (1.6-8.6); Neutrophils % (auto) 92.3 % (37.0-80.0); Nucleated Red Blood Cells % 0.1 %; Red Blood Cells 3.19 10^6/uL (4.5-5.90); Red Cell Distribution Width 16.5 % (11.8-14.3); White Blood Cell 6.8 10^3/uL (4.4-10.8)
[2021-10-27 18:04] LABS: BUN/Creatinine Ratio 16.4; Potassium 3.6 mmol/L (3.5-5.1)
[2021-10-27 18:27] LABS: Calcium 5.6 mg/dL (8.5-10.1)
[2021-10-27 20:00] VITALS: BP 145/75
[2021-10-27 22:00] VITALS: BP 158/80
[2021-10-28] MEDS: FUROSEMIDE 40 MG/4 ML VIAL IV SCH ×3 (03:54→15:07)
[2021-10-28] MEDS: InsuLIN REG 1unit/0.01ml Soln (100units/ml) SC SCH ×6 (04:00→20:27)
[2021-10-28] MEDS: ACCU-CHEK COMFORT CURVE STRIP VI SCH ×6 (04:00→20:00)
[2021-10-28 05:00] VITALS: BP 146/78
[2021-10-28] MEDS: SODIUM CHLOR 0.9% PF (SALINE LOCK) 10ML VIAL/SYR IV SCH ×3 (05:34→21:22)
[2021-10-28] MEDS: NYSTATIN (MOUTH-THROAT) 500,000 UNITS/5 ML SUSP MT SCH ×5 (06:58→21:22)
[2021-10-28 08:00] VITALS: BP 145/76
[2021-10-28 08:43] VITALS: BP 145/76
[2021-10-28] MEDS: CALCIUM ACETATE 667 MG CAP PO SCH ×3 (08:43→18:00)
[2021-10-28] MEDS: ZINC SULFATE 220mg CAP or TAB PO SCH (10:43)
[2021-10-28] MEDS: CALCIUM CARB 500 MG CHEW TAB PO SCH ×2 (10:43→21:22)
[2021-10-28] MEDS: MULTIPLE VITAMIN TAB PO SCH (10:43)
[2021-10-28] MEDS: DexAMETHasone SOD PHOS 10MG/1ML VIAL INJ IV SCH (10:43)
[2021-10-28] MEDS: FAMOTIDINE (10MG/ML) 2ML VL IV SCH (10:43)
[2021-10-28] MEDS: ASCORBIC ACID 500 MG TAB PO SCH ×2 (10:43→21:23)
[2021-10-28] MEDS: MIDODRINE HCL 10 MG TAB PO SCH ×2 (12:00→18:00)
[2021-10-28 12:48] VITALS: BP 145/81
[2021-10-28 12:56] LABS: BUN/Creatinine Ratio 16.4; Potassium 3.4 mmol/L (3.5-5.1)
[2021-10-28 13:19] LABS: Calcium 5.9 mg/dL (8.5-10.1)
[2021-10-28] MEDS: LORazepam 2MG/ML-1ML VIAL IV PRN (15:18)
[2021-10-28 17:00] VITALS: BP 146/85
[2021-10-28 22:00] VITALS: BP 145/77
[2021-10-29] MEDS: ACCU-CHEK COMFORT CURVE STRIP VI SCH ×6 (04:00→20:13)
[2021-10-29 05:00] VITALS: BP 150/83
[2021-10-29] MEDS: InsuLIN REG 1unit/0.01ml Soln (100units/ml) SC SCH ×6 (05:00→20:00)
[2021-10-29] MEDS: SODIUM CHLOR 0.9% PF (SALINE LOCK) 10ML VIAL/SYR IV SCH ×3 (05:37→21:27)
[2021-10-29] MEDS: NYSTATIN (MOUTH-THROAT) 500,000 UNITS/5 ML SUSP MT SCH ×4 (05:38→21:27)
[2021-10-29] MEDS: MIDODRINE HCL 10 MG TAB PO SCH ×3 (05:42→18:00)
[2021-10-29 08:00] VITALS: BP 2/69
[2021-10-29] MEDS: CALCIUM ACETATE 667 MG CAP PO SCH ×4 (08:00→18:00)
[2021-10-29] MEDS: LORazepam 2MG/ML-1ML VIAL IV PRN (08:52)
[2021-10-29 09:00] VITALS: BP 132/69
[2021-10-29] MEDS: ZINC SULFATE 220mg CAP or TAB PO SCH (09:22)
[2021-10-29] MEDS: DexAMETHasone SOD PHOS 10MG/1ML VIAL INJ IV SCH (09:22)
[2021-10-29] MEDS: CALCIUM CARB 500 MG CHEW TAB PO SCH ×2 (09:23→21:27)
[2021-10-29] MEDS: ASCORBIC ACID 500 MG TAB PO SCH ×2 (09:23→21:27)
[2021-10-29] MEDS: MULTIPLE VITAMIN TAB PO SCH (09:23)
[2021-10-29 09:32] LABS: BUN/Creatinine Ratio 16.2; Calcium 6.1 mg/dL (8.5-10.1); Potassium 3.8 mmol/L (3.5-5.1)
[2021-10-29 13:00] VITALS: BP 124/67
[2021-10-29] MEDS: HEPARIN SODIUM (PORCINE) 5000 UNITS/ML 1ML VIAL SC SCH ×2 (13:44→21:29)
[2021-10-29 17:00] VITALS: BP 146/80
[2021-10-29 22:00] VITALS: BP 149/80
[2021-10-30] VITALS (94 sets, daily range): BP systolic 59–201; BP diastolic 24–114
[2021-10-30] MEDS: InsuLIN REG 1unit/0.01ml Soln (100units/ml) SC SCH ×10 (04:00→23:32)
[2021-10-30] MEDS ORDERED: MIDAZOLAM DRIP 50 mg/50mL 50 ML IV ONE (04:18)
[2021-10-30] MEDS: ACCU-CHEK COMFORT CURVE STRIP VI SCH ×10 (04:29→23:33)
[2021-10-30] MEDS ORDERED: MORPHINE SULFATE INJECTION 2 MG/ML SYRG IV PRN (04:45)
[2021-10-30] MEDS ORDERED: ACETAMINOPHEN 650 mg PER 20.3 mL UD GT PRN (04:45)
[2021-10-30] MEDS ORDERED: HYDROcodone-ACET 5/325MG TAB PO PRN (04:45)
[2021-10-30] MEDS: MIDAZOLAM DRIP 50 mg/50mL 50 ML IV SCH (04:45)
[2021-10-30] MEDS ORDERED: FUROSEMIDE 40 MG/4 ML VIAL IV SCH (04:45)
[2021-10-30] MEDS ORDERED: DEXTROSE (50%) 50ML SYRG IV PRN (04:45)
[2021-10-30] MEDS ORDERED: NOREPINEPHRINE 8 MG/250ML KIT 250 ML IV ONE (04:55)
[2021-10-30 05:07] LABS: Basophils # (auto) 0 10 ^3/uL (0-0.2); Basophils % (auto) 0.5 % (0.0-2.0); Eosinophils # (auto) 0 10 ^3/uL (0-0.8); Hematocrit 31.2 % (41.0-53.0); Hemoglobin 9.7 g/dL (13.5-17.5); Lymphocytes # (auto) 1.5 10 ^3/uL (0.4-5.4); Lymphocytes % (auto) 26.4 % (10.0-50.0); Mean Corpuscular Hemoglobin 30.9 pg (28.0-32.0); Mean Corpuscular Hgb Conc. 31.2 g/dL (32.0-36.0); Mean Corpuscular Volume 98.8 fL (80.0-100.0); Monocytes # (auto) 0.1 10 ^3/uL (0-1.3); Monocytes % (auto) 1.7 % (0.0-12.0); Neutrophils # (auto) 4.1 10 ^3/uL (1.6-8.6); Neutrophils % (auto) 71.4 % (37.0-80.0); Nucleated Red Blood Cells % 0.4 %; Red Blood Cells 3.16 10^6/uL (4.5-5.90); Red Cell Distribution Width 17.1 % (11.8-14.3); White Blood Cell 5.7 10^3/uL (4.4-10.8)
[2021-10-30 05:22] LABS: Calcium 6.7 mg/dL (8.5-10.1); Potassium 4.5 mmol/L (3.5-5.1)
[2021-10-30 05:24] LABS: BUN/Creatinine Ratio 16.3
[2021-10-30 05:29] LABS: INR 1.62 (0.9-1.15); Partial Thromboplastin Time 37.9 sec (23.6-33.0)
[2021-10-30 05:30] LABS: Bilirubin, Total 2.7 mg/dL (0.2-1.0); Total Protein 6.6 g/dL (6.4-8.2)
[2021-10-30] MEDS: NYSTATIN (MOUTH-THROAT) 500,000 UNITS/5 ML SUSP MT SCH ×4 (06:00→22:00)
[2021-10-30] MEDS: MIDODRINE HCL 10 MG TAB PO SCH ×3 (06:00→17:59)
[2021-10-30] MEDS: SODIUM CHLOR 0.9% PF (SALINE LOCK) 10ML VIAL/SYR IV SCH ×3 (06:00→22:00)
[2021-10-30] MEDS: NOREPINEPHRINE 8 MG/250ML KIT 250 ML IV SCH ×2 (06:36→13:16)
[2021-10-30] MEDS ORDERED: PROPOFOL 100 ML IV ONE (09:57)
[2021-10-30] MEDS ORDERED: fentaNYL Drip 2500mCg/250mlNS 250 ML IV ONE (09:57)
[2021-10-30] MEDS: CALCIUM CARB 500 MG CHEW TAB PO SCH ×3 (10:00→22:00)
[2021-10-30] MEDS: ZINC SULFATE 220mg CAP or TAB PO SCH (10:17)
[2021-10-30] MEDS: DexAMETHasone SOD PHOS 10MG/1ML VIAL INJ IV SCH (10:17)
[2021-10-30] MEDS: CALCIUM ACETATE 667 MG CAP PO SCH ×3 (10:17→17:59)
[2021-10-30] MEDS: FAMOTIDINE (10MG/ML) 2ML VL IV SCH (10:17)
[2021-10-30] MEDS: MULTIPLE VITAMIN TAB PO SCH (10:18)
[2021-10-30] MEDS: ASCORBIC ACID 500 MG TAB PO SCH ×2 (10:18→22:00)
[2021-10-30] MEDS ORDERED: PHENYLEPHRINE IV 250 ML IV ONE (10:21)
[2021-10-30] MEDS: HEPARIN SODIUM (PORCINE) 5000 UNITS/ML 1ML VIAL SC SCH ×2 (10:37→22:00)
[2021-10-30] MEDS ORDERED: METOPROLOL TARTRATE 1MG/1ML-5ML VIAL IV PRN (11:30)
[2021-10-30] MEDS: PROPOFOL 100 ML IV SCH ×2 (11:47→13:15)
[2021-10-30] MEDS: PHENYLEPHRINE IV 250 ML IV SCH ×2 (11:48→14:54)
[2021-10-30] MEDS: fentaNYL Drip 2500mCg/250mlNS 250 ML IV SCH (12:00)
[2021-10-30] MEDS: VANCOMYCIN HCL 125MG/5ML ORAL SOL PO SCH ×3 (15:27→23:33)
[2021-10-30] MEDS ORDERED: VANCOMYCIN 500 MG in D5W 5% 100 ML IV ONE (17:00)
[2021-10-30] MEDS: NOREPINEPHRINE BITARTRATE 32 MG in SODIUM CHL 0.9% 218 ML IV SCH (17:45)
[2021-10-30] MEDS: PHENYLEPHRINE INJ 80 MG in SODIUM CHL 0.9% 242 ML IV SCH (17:58)
[2021-10-30] MEDS ORDERED: EPINEPHrine HCL 1 MG/10 ML SYRG IV ONE (18:44)
[2021-10-30] MEDS ORDERED: SODIUM BICARBONATE 8.4% INJ 50ML SYRINGE IV ONE (18:44)
[2021-10-30] MEDS: ALBUTEROL SULF 2.5 MG/0.5ML(0.5%) NEB SOLN NEB PRN (19:09)
[2021-10-30] MEDS ORDERED: HEPARIN SODIUM (PORCINE) 5000 UNITS/ML 1ML VIAL ONE (21:50)
[2021-10-30 21:57] LABS: Albumin 1.8 g/dL (3.4-5.0); Magnesium 2.6 mg/dL (1.6-2.6); Potassium 3.9 mmol/L (3.5-5.1)
[2021-10-30 22:01] LABS: BUN/Creatinine Ratio 15.2; Bilirubin, Total 3.1 mg/dL (0.2-1.0); Total Protein 5.7 g/dL (6.4-8.2)
[2021-10-30 22:22] LABS: Calcium 5.9 mg/dL (8.5-10.1)
[2021-10-30] MEDS ORDERED: CALCIUM GLUC 1,000mg/50ml-NS 50 ML IV ONE ×2 (23:15→23:36)
[2021-10-30] MEDS ORDERED: CALCIUM GLUC 4.65 MEQ/10ML 0 ML IV ONE (23:35)
[2021-10-31] VITALS (100 sets, daily range): BP systolic 84–144; BP diastolic 45–81
[2021-10-31 02:26] LABS: Basophils # (auto) 0 10 ^3/uL (0-0.2); Basophils % (auto) 0.1 % (0.0-2.0); Eosinophils # (auto) 0 10 ^3/uL (0-0.8); Eosinophils % (auto) 0.2 % (0.0-7.0); Hematocrit 27.3 % (41.0-53.0); Lymphocytes # (auto) 0.1 10 ^3/uL (0.4-5.4); Lymphocytes % (auto) 3.5 % (10.0-50.0); Mean Corpuscular Hemoglobin 31.5 pg (28.0-32.0); Mean Corpuscular Hgb Conc. 32.8 g/dL (32.0-36.0); Mean Corpuscular Volume 96.1 fL (80.0-100.0); Monocytes # (auto) 0 10 ^3/uL (0-1.3); Monocytes % (auto) 1.2 % (0.0-12.0); Neutrophils # (auto) 3.7 10 ^3/uL (1.6-8.6); Nucleated Red Blood Cells % 1.2 %; Red Blood Cells 2.84 10^6/uL (4.5-5.90); Red Cell Distribution Width 16.4 % (11.8-14.3); White Blood Cell 3.9 10^3/uL (4.4-10.8)
[2021-10-31 03:02] LABS: Albumin 1.7 g/dL (3.4-5.0); BUN/Creatinine Ratio 15.8
[2021-10-31 03:05] LABS: Bilirubin, Total 3.4 mg/dL (0.2-1.0); Total Protein 5.8 g/dL (6.4-8.2)
[2021-10-31] MEDS: MIDAZOLAM DRIP 50 mg/50mL 50 ML IV SCH (04:45)
[2021-10-31] MEDS: SODIUM CHLOR 0.9% PF (SALINE LOCK) 10ML VIAL/SYR IV SCH ×3 (05:41→22:00)
[2021-10-31] MEDS: NYSTATIN (MOUTH-THROAT) 500,000 UNITS/5 ML SUSP MT SCH ×4 (05:42→22:00)
[2021-10-31] MEDS: MIDODRINE HCL 10 MG TAB PO SCH ×3 (05:48→18:19)
[2021-10-31] MEDS: VANCOMYCIN HCL 125MG/5ML ORAL SOL PO SCH ×3 (05:48→18:19)
[2021-10-31] MEDS: ACCU-CHEK COMFORT CURVE STRIP VI SCH ×4 (05:52→20:00)
[2021-10-31] MEDS: InsuLIN REG 1unit/0.01ml Soln (100units/ml) SC SCH ×4 (05:52→20:00)
[2021-10-31] MEDS ORDERED: POTASSIUM CHL 10MEQ/50ML 50 ML IV ONE (06:00)
[2021-10-31] MEDS ORDERED: DEXTROSE (50%) 50ML SYRG IV PRN (09:00)
[2021-10-31] MEDS: ZINC SULFATE 220mg CAP or TAB PO SCH (09:11)
[2021-10-31] MEDS: MULTIPLE VITAMIN TAB PO SCH (09:11)
[2021-10-31] MEDS: CALCIUM ACETATE 667 MG CAP PO SCH ×3 (09:12→18:19)
[2021-10-31] MEDS: ASCORBIC ACID 500 MG TAB PO SCH ×2 (09:12→22:00)
[2021-10-31] MEDS: DexAMETHasone SOD PHOS 10MG/1ML VIAL INJ IV SCH (09:13)
[2021-10-31] MEDS: HEPARIN SODIUM (PORCINE) 5000 UNITS/ML 1ML VIAL SC SCH ×2 (09:13→22:00)
[2021-10-31] MEDS: CALCIUM CARB 500 MG CHEW TAB PO SCH ×2 (09:14→22:00)
[2021-10-31] MEDS: fentaNYL Drip 2500mCg/250mlNS 250 ML IV SCH (10:45)
[2021-10-31] MEDS: PROPOFOL 100 ML IV SCH (17:14)
[2021-10-31] MEDS: NOREPINEPHRINE BITARTRATE 32 MG in SODIUM CHL 0.9% 218 ML IV SCH (17:45)
[2021-10-31] MEDS: PHENYLEPHRINE INJ 80 MG in SODIUM CHL 0.9% 242 ML IV SCH (17:45)
[2021-10-31] MEDS: METOCLOPRAMIDE HCL 5MG/ml INJ 2ml VIAL IV SCH (22:00)
[2021-11-01] VITALS (95 sets, daily range): BP systolic 73–169; BP diastolic 2–105
[2021-11-01] MEDS: PROPOFOL 100 ML IV SCH (00:15)
[2021-11-01] MEDS: ALBUTEROL SULF 2.5 MG/0.5ML(0.5%) NEB SOLN NEB PRN (02:24)
[2021-11-01 03:28] LABS: BUN/Creatinine Ratio 16.6; Calcium 6.2 mg/dL (8.5-10.1)
[2021-11-01] MEDS: InsuLIN REG 1unit/0.01ml Soln (100units/ml) SC SCH ×5 (04:00→15:28)
[2021-11-01] MEDS: ACCU-CHEK COMFORT CURVE STRIP VI SCH ×5 (04:00→15:28)
[2021-11-01] MEDS: MIDAZOLAM DRIP 50 mg/50mL 50 ML IV SCH (04:45)
[2021-11-01] MEDS: NYSTATIN (MOUTH-THROAT) 500,000 UNITS/5 ML SUSP MT SCH ×4 (06:00→20:17)
[2021-11-01] MEDS: METOCLOPRAMIDE HCL 5MG/ml INJ 2ml VIAL IV SCH ×3 (06:00→20:19)
[2021-11-01] MEDS: VANCOMYCIN HCL 125MG/5ML ORAL SOL PO SCH ×5 (06:00→17:06)
[2021-11-01] MEDS: MIDODRINE HCL 10 MG TAB PO SCH ×3 (06:00→15:29)
[2021-11-01] MEDS: SODIUM CHLOR 0.9% PF (SALINE LOCK) 10ML VIAL/SYR IV SCH ×3 (06:00→20:17)
[2021-11-01] MEDS: CALCIUM CARB 500 MG CHEW TAB PO SCH ×2 (07:43→20:17)
[2021-11-01] MEDS: CALCIUM ACETATE 667 MG CAP PO SCH ×3 (09:29→15:29)
[2021-11-01] MEDS: HEPARIN SODIUM (PORCINE) 5000 UNITS/ML 1ML VIAL SC SCH ×2 (09:31→20:18)
[2021-11-01] MEDS: DexAMETHasone SOD PHOS 10MG/1ML VIAL INJ IV SCH (09:32)
[2021-11-01] MEDS: FAMOTIDINE (10MG/ML) 2ML VL IV SCH (09:33)
[2021-11-01] MEDS: MULTIPLE VITAMIN TAB PO SCH (09:33)
[2021-11-01] MEDS: ZINC SULFATE 220mg CAP or TAB PO SCH (09:33)
[2021-11-01] MEDS: ASCORBIC ACID 500 MG TAB PO SCH ×2 (09:33→20:18)
[2021-11-01] MEDS ORDERED: NOREPINEPHRINE 8 MG/250ML KIT 250 ML IV ONE (10:32)
[2021-11-01] MEDS: fentaNYL Drip 2500mCg/250mlNS 250 ML IV SCH (10:55)
[2021-11-01] MEDS ORDERED: SODIUM CHL 0.9% 1000 ML BAG XX ONE (11:30)
[2021-11-01] MEDS ORDERED: ALBUMIN 25% 200 ML IV ONE (12:04)
[2021-11-01] MEDS: ALBUMIN 25% 100 ML IV SCH ×2 (12:11→12:46)
[2021-11-01] MEDS ORDERED: cefTRIAXone 1GM/50ML D5W 50 ML IV ONE (13:45)
[2021-11-01] MEDS: PHENYLEPHRINE INJ 80 MG in SODIUM CHL 0.9% 242 ML IV SCH (15:28)
[2021-11-01 15:41] LABS: Hematocrit 20.1 % (41.0-53.0); Mean Corpuscular Hemoglobin 31.6 pg (28.0-32.0); Mean Corpuscular Hgb Conc. 33.3 g/dL (32.0-36.0); Mean Corpuscular Volume 94.9 fL (80.0-100.0); Red Blood Cells 2.12 10^6/uL (4.5-5.90); Red Cell Distribution Width 16.4 % (11.8-14.3)
[2021-11-01 15:47] LABS: Hemoglobin 6.7 g/dL (13.5-17.5)
[2021-11-01 15:48] LABS: Basophils % (manual) 0 (0.0-2.0); Blast Cells 0; Eosinophils % (manual) 0 (0-7); Metamyelocytes % 0; Myelocytes % 0; Promyelocytes % 0; Reactive Lymphocytes 0
[2021-11-01 16:37] LABS: Band Neutrophils % (manual) 28; Lymphocytes % (manual) 4 (10.0-50.0); Monocytes % (manual) 4 (0-12)
[2021-11-01] MEDS: NOREPINEPHRINE BITARTRATE 32 MG in SODIUM CHL 0.9% 218 ML IV SCH (17:07)
[2021-11-01] MEDS ORDERED: TPN PER PHARMACY 0 ML IV SCH (17:15)
[2021-11-01] MEDS: AMINO ACID INFUSION IN D10W 1,000 ML IV NR (20:00)
[2021-11-01] MEDS ORDERED: EPOETIN ALFA-EPBX 10,000 UNIT/1ML VIAL SC ONE (21:00)
[2021-11-02] VITALS (99 sets, daily range): BP systolic 81–141; BP diastolic 43–87
[2021-11-02] MEDS ORDERED: DEXTROSE (50%) 50ML SYRG IV SCH
[2021-11-02] MEDS: VANCOMYCIN HCL 125MG/5ML ORAL SOL PO SCH ×5 (00:16→23:27)
[2021-11-02] MEDS: ACCU-CHEK COMFORT CURVE STRIP VI SCH ×4 (00:17→18:46)
[2021-11-02] MEDS: MIDAZOLAM DRIP 50 mg/50mL 50 ML IV SCH (04:45)
[2021-11-02] MEDS: SODIUM CHLOR 0.9% PF (SALINE LOCK) 10ML VIAL/SYR IV SCH ×3 (06:01→21:29)
[2021-11-02] MEDS: METOCLOPRAMIDE HCL 5MG/ml INJ 2ml VIAL IV SCH ×3 (06:01→21:29)
[2021-11-02] MEDS: NYSTATIN (MOUTH-THROAT) 500,000 UNITS/5 ML SUSP MT SCH ×4 (06:01→21:29)
[2021-11-02] MEDS: MIDODRINE HCL 10 MG TAB PO SCH ×3 (06:01→18:51)
[2021-11-02] MEDS: InsuLIN REG 1unit/0.01ml Soln (100units/ml) SC SCH ×4 (06:05→18:47)
[2021-11-02] MEDS ORDERED: CLINIMIX PER PHARMACY 0 ML IV SCH (07:00)
[2021-11-02 07:28] LABS: Albumin 1.9 g/dL (3.4-5.0); Calcium 6.6 mg/dL (8.5-10.1); Magnesium 2.8 mg/dL (1.6-2.6)
[2021-11-02 07:33] LABS: BUN/Creatinine Ratio 14.8; Bilirubin, Total 2.2 mg/dL (0.2-1.0); Phosphorus 5.3 mg/dL (2.5-4.90); Pre Albumin 4.9 mg/dL (20.0-40.0); Total Protein 5.1 g/dL (6.4-8.2)
[2021-11-02 08:17] LABS: Basophils # (auto) 0 10 ^3/uL (0-0.2); Basophils % (auto) 0.1 % (0.0-2.0); Eosinophils # (auto) 0 10 ^3/uL (0-0.8); Eosinophils % (auto) 0.1 % (0.0-7.0); Hematocrit 22.3 % (41.0-53.0); Hemoglobin 7.2 g/dL (13.5-17.5); Lymphocytes # (auto) 0.2 10 ^3/uL (0.4-5.4); Lymphocytes % (auto) 3.4 % (10.0-50.0); Mean Corpuscular Hemoglobin 31.1 pg (28.0-32.0); Mean Corpuscular Hgb Conc. 32.2 g/dL (32.0-36.0); Mean Corpuscular Volume 96.8 fL (80.0-100.0); Monocytes # (auto) 0.1 10 ^3/uL (0-1.3); Monocytes % (auto) 1.9 % (0.0-12.0); Neutrophils # (auto) 4.4 10 ^3/uL (1.6-8.6); Neutrophils % (auto) 94.5 % (37.0-80.0); Nucleated Red Blood Cells % 0.3 %; Red Blood Cells 2.31 10^6/uL (4.5-5.90); Red Cell Distribution Width 16.8 % (11.8-14.3); White Blood Cell 4.6 10^3/uL (4.4-10.8)
[2021-11-02] MEDS: CALCIUM ACETATE 667 MG CAP PO SCH ×3 (09:41→18:51)
[2021-11-02] MEDS: cefTRIAXone 1GM/50ML D5W 50 ML IV SCH (09:41)
[2021-11-02] MEDS: ZINC SULFATE 220mg CAP or TAB PO SCH (09:42)
[2021-11-02] MEDS: ASCORBIC ACID 500 MG TAB PO SCH (09:42)
[2021-11-02] MEDS: MULTIPLE VITAMIN TAB PO SCH (09:42)
[2021-11-02] MEDS: fentaNYL Drip 2500mCg/250mlNS 250 ML IV SCH (09:44)
[2021-11-02] MEDS: AMINO ACID INFUSION IN D10W 1,000 ML IV NR (09:46)
[2021-11-02] MEDS: CALCIUM CARB 500 MG CHEW TAB PO SCH ×2 (10:00→21:29)
[2021-11-02] MEDS: HEPARIN SODIUM (PORCINE) 5000 UNITS/ML 1ML VIAL SC SCH ×2 (10:00→21:30)
[2021-11-02] MEDS: PROPOFOL 100 ML IV SCH (10:45)
[2021-11-02] MEDS: NOREPINEPHRINE BITARTRATE 32 MG in SODIUM CHL 0.9% 218 ML IV SCH (17:45)
[2021-11-02] MEDS: PHENYLEPHRINE INJ 80 MG in SODIUM CHL 0.9% 242 ML IV SCH (18:50)
[2021-11-02] MEDS ORDERED: TPN PER PHARMACY IV NR ×6 (20:00)
[2021-11-03] VITALS (99 sets, daily range): BP systolic 91–151; BP diastolic 45–76
[2021-11-03] MEDS: MIDAZOLAM DRIP 50 mg/50mL 50 ML IV SCH (04:45)
[2021-11-03] MEDS: MIDODRINE HCL 10 MG TAB PO SCH ×3 (06:00→17:45)
[2021-11-03] MEDS: VANCOMYCIN HCL 125MG/5ML ORAL SOL PO SCH ×3 (06:01→17:45)
[2021-11-03] MEDS: NYSTATIN (MOUTH-THROAT) 500,000 UNITS/5 ML SUSP MT SCH ×4 (06:01→20:56)
[2021-11-03] MEDS: InsuLIN REG 1unit/0.01ml Soln (100units/ml) SC SCH ×5 (06:01→23:58)
[2021-11-03] MEDS: METOCLOPRAMIDE HCL 5MG/ml INJ 2ml VIAL IV SCH ×3 (06:01→20:56)
[2021-11-03] MEDS: ACCU-CHEK COMFORT CURVE STRIP VI SCH ×5 (06:01→23:56)
[2021-11-03] MEDS: SODIUM CHLOR 0.9% PF (SALINE LOCK) 10ML VIAL/SYR IV SCH ×3 (06:02→20:56)
[2021-11-03 06:10] LABS: Basophils # (auto) 0 10 ^3/uL (0-0.2); Eosinophils # (auto) 0 10 ^3/uL (0-0.8); Hematocrit 23.3 % (41.0-53.0); Hemoglobin 7.6 g/dL (13.5-17.5); Lymphocytes # (auto) 0.2 10 ^3/uL (0.4-5.4); Monocytes # (auto) 0.1 10 ^3/uL (0-1.3); Neutrophils % (auto) 94.9 % (37.0-80.0); Nucleated Red Blood Cells % 0.3 %
[2021-11-03 06:12] LABS: Basophils % (auto) 0.3 % (0.0-2.0); Mean Corpuscular Hemoglobin 31.8 pg (28.0-32.0); Mean Corpuscular Hgb Conc. 32.5 g/dL (32.0-36.0); Mean Corpuscular Volume 97.7 fL (80.0-100.0); Monocytes % (auto) 1.8 % (0.0-12.0); Neutrophils # (auto) 5.2 10 ^3/uL (1.6-8.6); Red Blood Cells 2.39 10^6/uL (4.5-5.90); Red Cell Distribution Width 16.8 % (11.8-14.3); White Blood Cell 5.5 10^3/uL (4.4-10.8)
[2021-11-03 06:39] LABS: Potassium 3.8 mmol/L (3.5-5.1)
[2021-11-03 06:50] LABS: Albumin 1.6 g/dL (3.4-5.0); BUN/Creatinine Ratio 16.8; Bilirubin, Total 1.9 mg/dL (0.2-1.0); Calcium 6.6 mg/dL (8.5-10.1); Magnesium 2.9 mg/dL (1.6-2.6); Total Protein 5.2 g/dL (6.4-8.2)
[2021-11-03] MEDS ORDERED: ALBUMIN 25% 100 ML IV PRN (09:15)
[2021-11-03] MEDS: MULTIPLE VITAMIN TAB PO SCH (09:25)
[2021-11-03] MEDS: cefTRIAXone 1GM/50ML D5W 50 ML IV SCH (09:25)
[2021-11-03] MEDS: FAMOTIDINE (10MG/ML) 2ML VL IV SCH (09:25)
[2021-11-03] MEDS: CALCIUM CARB 500 MG CHEW TAB PO SCH ×2 (09:25→20:56)
[2021-11-03] MEDS: CALCIUM ACETATE 667 MG CAP PO SCH ×3 (09:25→17:45)
[2021-11-03] MEDS: fentaNYL Drip 2500mCg/250mlNS 250 ML IV SCH (10:45)
[2021-11-03] MEDS: PROPOFOL 100 ML IV SCH (10:45)
[2021-11-03] MEDS: PHENYLEPHRINE INJ 80 MG in SODIUM CHL 0.9% 242 ML IV SCH (17:38)
[2021-11-03] MEDS: NOREPINEPHRINE BITARTRATE 32 MG in SODIUM CHL 0.9% 218 ML IV SCH (17:39)
[2021-11-03] MEDS ORDERED: Vital AF 1.2 Cal 1 liter bottle GT SCH (18:00)
[2021-11-03] MEDS ORDERED: TPN PER PHARMACY IV NR ×7 (20:00)
[2021-11-04] VITALS (95 sets, daily range): BP systolic 63–163; BP diastolic 37–105
[2021-11-04] MEDS: VANCOMYCIN HCL 125MG/5ML ORAL SOL PO SCH ×4 (00:01→17:37)
[2021-11-04] MEDS: MIDAZOLAM DRIP 50 mg/50mL 50 ML IV SCH (04:45)
[2021-11-04 05:11] LABS: Basophils # (auto) 0 10 ^3/uL (0-0.2); Basophils % (auto) 0.1 % (0.0-2.0); Eosinophils # (auto) 0 10 ^3/uL (0-0.8); Lymphocytes # (auto) 0.3 10 ^3/uL (0.4-5.4); Monocytes # (auto) 0 10 ^3/uL (0-1.3)
[2021-11-04 05:17] LABS: Eosinophils % (auto) 0.4 % (0.0-7.0); Hematocrit 24.4 % (41.0-53.0); Lymphocytes % (auto) 6.3 % (10.0-50.0); Mean Corpuscular Hemoglobin 31.6 pg (28.0-32.0); Mean Corpuscular Hgb Conc. 32.8 g/dL (32.0-36.0); Mean Corpuscular Volume 96.1 fL (80.0-100.0); Monocytes % (auto) 0.5 % (0.0-12.0); Neutrophils # (auto) 4.7 10 ^3/uL (1.6-8.6); Neutrophils % (auto) 92.7 % (37.0-80.0); Nucleated Red Blood Cells % 0.9 %; Red Blood Cells 2.54 10^6/uL (4.5-5.90); White Blood Cell 5.1 10^3/uL (4.4-10.8)
[2021-11-04 05:29] LABS: Albumin 1.5 g/dL (3.4-5.0); BUN/Creatinine Ratio 18.6; Magnesium 1.8 mg/dL (1.6-2.6); Potassium 3.5 mmol/L (3.5-5.1)
[2021-11-04 05:32] LABS: Bilirubin, Total 1.4 mg/dL (0.2-1.0); Phosphorus 3.9 mg/dL (2.5-4.90); Total Protein 5.2 g/dL (6.4-8.2)
[2021-11-04 05:34] LABS: INR 1.33 (0.9-1.15); Partial Thromboplastin Time 35.4 sec (23.6-33.0)
[2021-11-04] MEDS: MIDODRINE HCL 10 MG TAB PO SCH ×3 (06:00→17:37)
[2021-11-04] MEDS: ACCU-CHEK COMFORT CURVE STRIP VI SCH ×3 (06:00→17:38)
[2021-11-04] MEDS: InsuLIN REG 1unit/0.01ml Soln (100units/ml) SC SCH ×3 (06:00→17:37)
[2021-11-04] MEDS: METOCLOPRAMIDE HCL 5MG/ml INJ 2ml VIAL IV SCH ×3 (06:00→20:48)
[2021-11-04] MEDS: SODIUM CHLOR 0.9% PF (SALINE LOCK) 10ML VIAL/SYR IV SCH ×3 (06:00→20:48)
[2021-11-04] MEDS: NYSTATIN (MOUTH-THROAT) 500,000 UNITS/5 ML SUSP MT SCH ×4 (06:00→20:50)
[2021-11-04] MEDS ORDERED: SODIUM CHL 0.9% 1000 ML BAG XX ONE (07:00)
[2021-11-04] MEDS: cefTRIAXone 1GM/50ML D5W 50 ML IV SCH (08:56)
[2021-11-04] MEDS: CALCIUM ACETATE 667 MG CAP PO SCH ×3 (08:56→17:37)
[2021-11-04] MEDS: MULTIPLE VITAMIN TAB PO SCH (08:57)
[2021-11-04] MEDS: CALCIUM CARB 500 MG CHEW TAB PO SCH ×2 (08:57→20:52)
[2021-11-04] MEDS ORDERED: ALBUMIN 25% 200 ML IV ONE (11:56)
[2021-11-04] MEDS: PHYTONADIONE (VIT K)10 MG/ML 1ML VIAL SUBCUT SCH (13:48)
[2021-11-04] MEDS: PHENYLEPHRINE INJ 80 MG in SODIUM CHL 0.9% 242 ML IV SCH (13:49)
[2021-11-04] MEDS: NOREPINEPHRINE BITARTRATE 32 MG in SODIUM CHL 0.9% 218 ML IV SCH (13:49)
[2021-11-04] MEDS: PROPOFOL 100 ML IV SCH (17:36)
[2021-11-04] MEDS ORDERED: TPN PER PHARMACY IV NR ×8 (20:00)
[2021-11-04] MEDS ORDERED: EPOETIN ALFA-EPBX 10,000 UNIT/1ML VIAL SC ONE (21:00)
[2021-11-05] VITALS (91 sets, daily range): BP systolic 81–145; BP diastolic 42–66
[2021-11-05] MEDS: ACCU-CHEK COMFORT CURVE STRIP VI SCH ×4 (00:17→17:12)
[2021-11-05] MEDS: VANCOMYCIN HCL 125MG/5ML ORAL SOL PO SCH ×4 (00:22→17:11)
[2021-11-05] MEDS: InsuLIN REG 1unit/0.01ml Soln (100units/ml) SC SCH ×4 (00:24→17:12)
[2021-11-05] MEDS: MIDAZOLAM DRIP 50 mg/50mL 50 ML IV SCH (04:45)
[2021-11-05 05:23] LABS: Albumin 1.9 g/dL (3.4-5.0); BUN/Creatinine Ratio 19.9; Calcium 7.1 mg/dL (8.5-10.1); Magnesium 1.8 mg/dL (1.6-2.6)
[2021-11-05 05:26] LABS: Bilirubin, Total 1.2 mg/dL (0.2-1.0); Phosphorus 2.7 mg/dL (2.5-4.90); Total Protein 5.1 g/dL (6.4-8.2)
[2021-11-05] MEDS: NYSTATIN (MOUTH-THROAT) 500,000 UNITS/5 ML SUSP MT SCH ×4 (06:00→22:00)
[2021-11-05] MEDS: SODIUM CHLOR 0.9% PF (SALINE LOCK) 10ML VIAL/SYR IV SCH ×3 (06:00→22:00)
[2021-11-05] MEDS: MIDODRINE HCL 10 MG TAB PO SCH ×3 (06:00→17:11)
[2021-11-05] MEDS: fentaNYL Drip 2500mCg/250mlNS 250 ML IV SCH (06:33)
[2021-11-05] MEDS: METOCLOPRAMIDE HCL 5MG/ml INJ 2ml VIAL IV SCH ×3 (07:00→22:00)
[2021-11-05] MEDS: PROPOFOL 100 ML IV SCH (07:20)
[2021-11-05] MEDS: cefTRIAXone 1GM/50ML D5W 50 ML IV SCH (08:09)
[2021-11-05] MEDS: CALCIUM ACETATE 667 MG CAP PO SCH ×3 (09:15→17:11)
[2021-11-05] MEDS: PHYTONADIONE (VIT K)10 MG/ML 1ML VIAL SUBCUT SCH (09:16)
[2021-11-05] MEDS: CALCIUM CARB 500 MG CHEW TAB PO SCH ×2 (09:16→22:00)
[2021-11-05] MEDS: MULTIPLE VITAMIN TAB PO SCH (09:16)
[2021-11-05] MEDS: NOREPINEPHRINE BITARTRATE 32 MG in SODIUM CHL 0.9% 218 ML IV SCH (14:00)
[2021-11-05] MEDS: PHENYLEPHRINE INJ 80 MG in SODIUM CHL 0.9% 242 ML IV SCH (17:14)
[2021-11-05] MEDS ORDERED: TPN PER PHARMACY IV NR ×9 (20:00)
[2021-11-05] MEDS ORDERED: PHENYLEPHRINE IV ONE (21:17)
[2021-11-06] VITALS (97 sets, daily range): BP systolic 83–146; BP diastolic 44–68
[2021-11-06] MEDS: VANCOMYCIN HCL 125MG/5ML ORAL SOL PO SCH ×5 (00:30→23:31)
[2021-11-06] MEDS: ACCU-CHEK COMFORT CURVE STRIP VI SCH ×4 (00:30→18:25)
[2021-11-06] MEDS: fentaNYL Drip 2500mCg/250mlNS 250 ML IV SCH ×2 (02:00→11:48)
[2021-11-06] MEDS: MIDAZOLAM DRIP 50 mg/50mL 50 ML IV SCH (04:45)
[2021-11-06] MEDS: SODIUM CHLOR 0.9% PF (SALINE LOCK) 10ML VIAL/SYR IV SCH ×3 (05:06→22:06)
[2021-11-06] MEDS: MIDODRINE HCL 10 MG TAB PO SCH ×3 (06:00→18:25)
[2021-11-06] MEDS: NYSTATIN (MOUTH-THROAT) 500,000 UNITS/5 ML SUSP MT SCH ×4 (06:00→22:00)
[2021-11-06] MEDS: METOCLOPRAMIDE HCL 5MG/ml INJ 2ml VIAL IV SCH ×3 (06:24→22:06)
[2021-11-06 07:05] LABS: Basophils # (auto) 0 10 ^3/uL (0-0.2); Eosinophils # (auto) 0.1 10 ^3/uL (0-0.8); Hemoglobin 7.1 g/dL (13.5-17.5); Lymphocytes # (auto) 0.4 10 ^3/uL (0.4-5.4); Mean Corpuscular Hemoglobin 31.6 pg (28.0-32.0); Monocytes # (auto) 0.1 10 ^3/uL (0-1.3); Neutrophils # (auto) 6.3 10 ^3/uL (1.6-8.6)
[2021-11-06 07:10] LABS: Basophils % (auto) 0.3 % (0.0-2.0); Eosinophils % (auto) 1.6 % (0.0-7.0); Hematocrit 21.6 % (41.0-53.0); Lymphocytes % (auto) 5.3 % (10.0-50.0); Mean Corpuscular Hgb Conc. 32.7 g/dL (32.0-36.0); Mean Corpuscular Volume 96.4 fL (80.0-100.0); Monocytes % (auto) 1.1 % (0.0-12.0); Neutrophils % (auto) 91.7 % (37.0-80.0); Nucleated Red Blood Cells % 0.4 %; Red Blood Cells 2.24 10^6/uL (4.5-5.90); Red Cell Distribution Width 17.1 % (11.8-14.3); White Blood Cell 6.8 10^3/uL (4.4-10.8)
[2021-11-06 07:14] LABS: Potassium 4.4 mmol/L (3.5-5.1)
[2021-11-06] MEDS: InsuLIN REG 1unit/0.01ml Soln (100units/ml) SC SCH ×4 (07:15→18:28)
[2021-11-06 07:22] LABS: Albumin 1.5 g/dL (3.4-5.0); BUN/Creatinine Ratio 23.3; Bilirubin, Total 1.2 mg/dL (0.2-1.0); Calcium 7.5 mg/dL (8.5-10.1); Magnesium 2.9 mg/dL (1.6-2.6); Phosphorus 2.7 mg/dL (2.5-4.90); Total Protein 4.7 g/dL (6.4-8.2)
[2021-11-06] MEDS: MULTIPLE VITAMIN TAB PO SCH (08:36)
[2021-11-06] MEDS: CALCIUM CARB 500 MG CHEW TAB PO SCH ×2 (08:36→22:06)
[2021-11-06] MEDS: CALCIUM ACETATE 667 MG CAP PO SCH ×3 (08:36→16:14)
[2021-11-06] MEDS: cefTRIAXone 1GM/50ML D5W 50 ML IV SCH (08:36)
[2021-11-06] MEDS: PHENYLEPHRINE INJ 80 MG in SODIUM CHL 0.9% 242 ML IV SCH (14:01)
[2021-11-06] MEDS: PROPOFOL 100 ML IV SCH (14:02)
[2021-11-06] MEDS: NOREPINEPHRINE BITARTRATE 32 MG in SODIUM CHL 0.9% 218 ML IV SCH (17:45)
[2021-11-06] MEDS ORDERED: Vital AF 1.2 Cal 1 liter bottle GT SCH (19:15)
[2021-11-06] MEDS ORDERED: TPN PER PHARMACY IV NR ×8 (20:00)
[2021-11-07] VITALS (85 sets, daily range): BP systolic 69–131; BP diastolic 35–60
[2021-11-07] MEDS: MIDAZOLAM DRIP 50 mg/50mL 50 ML IV SCH (04:45)
[2021-11-07 05:49] LABS: Basophils # (auto) 0 10 ^3/uL (0-0.2); Basophils % (auto) 0.4 % (0.0-2.0); Eosinophils # (auto) 0.1 10 ^3/uL (0-0.8); Eosinophils % (auto) 1.7 % (0.0-7.0); Hemoglobin 7.1 g/dL (13.5-17.5); Lymphocytes # (auto) 0.3 10 ^3/uL (0.4-5.4); Lymphocytes % (auto) 4.1 % (10.0-50.0); Mean Corpuscular Hemoglobin 31.1 pg (28.0-32.0); Mean Corpuscular Hgb Conc. 32.3 g/dL (32.0-36.0); Mean Corpuscular Volume 96.2 fL (80.0-100.0); Monocytes # (auto) 0.1 10 ^3/uL (0-1.3); Neutrophils # (auto) 6.9 10 ^3/uL (1.6-8.6); Neutrophils % (auto) 91.8 % (37.0-80.0); Nucleated Red Blood Cells % 0.7 %; Red Blood Cells 2.28 10^6/uL (4.5-5.90); Red Cell Distribution Width 17.3 % (11.8-14.3); White Blood Cell 7.6 10^3/uL (4.4-10.8)
[2021-11-07 05:58] LABS: Albumin 1.3 g/dL (3.4-5.0); BUN/Creatinine Ratio 25.6; Potassium 4.4 mmol/L (3.5-5.1)
[2021-11-07] MEDS: METOCLOPRAMIDE HCL 5MG/ml INJ 2ml VIAL IV SCH ×3 (06:00→21:14)
[2021-11-07] MEDS: ACCU-CHEK COMFORT CURVE STRIP VI SCH ×4 (06:00→18:00)
[2021-11-07] MEDS: NYSTATIN (MOUTH-THROAT) 500,000 UNITS/5 ML SUSP MT SCH ×4 (06:00→21:15)
[2021-11-07] MEDS: SODIUM CHLOR 0.9% PF (SALINE LOCK) 10ML VIAL/SYR IV SCH ×3 (06:00→21:14)
[2021-11-07] MEDS: VANCOMYCIN HCL 125MG/5ML ORAL SOL PO SCH ×3 (06:00→18:00)
[2021-11-07 06:01] LABS: Bilirubin, Total 1.4 mg/dL (0.2-1.0); Phosphorus 2.7 mg/dL (2.5-4.90); Total Protein 4.6 g/dL (6.4-8.2)
[2021-11-07] MEDS ORDERED: SODIUM CHL 0.9% 1000 ML BAG XX ONE (07:00)
[2021-11-07] MEDS: MIDODRINE HCL 10 MG TAB PO SCH ×3 (07:00→18:41)
[2021-11-07] MEDS: InsuLIN REG 1unit/0.01ml Soln (100units/ml) SC SCH ×4 (07:00→18:00)
[2021-11-07] MEDS: MULTIPLE VITAMIN TAB PO SCH (09:16)
[2021-11-07] MEDS: CALCIUM ACETATE 667 MG CAP PO SCH ×3 (09:16→15:19)
[2021-11-07] MEDS: CALCIUM CARB 500 MG CHEW TAB PO SCH ×2 (09:16→21:15)
[2021-11-07] MEDS: cefTRIAXone 1GM/50ML D5W 50 ML IV SCH (09:16)
[2021-11-07] MEDS: PROPOFOL 100 ML IV SCH (12:36)
[2021-11-07] MEDS: NOREPINEPHRINE BITARTRATE 32 MG in SODIUM CHL 0.9% 218 ML IV SCH (15:19)
[2021-11-07] MEDS: PHENYLEPHRINE INJ 80 MG in SODIUM CHL 0.9% 242 ML IV SCH (15:20)
[2021-11-07] MEDS: fentaNYL Drip 2500mCg/250mlNS 250 ML IV SCH (15:54)
[2021-11-07] MEDS ORDERED: TPN PER PHARMACY IV NR ×7 (20:00)
[2021-11-07] MEDS ORDERED: EPOETIN ALFA-EPBX 10,000 UNIT/1ML VIAL SC ONE (21:00)
[2021-11-08] VITALS (99 sets, daily range): BP systolic 83–149; BP diastolic 35–57
[2021-11-08] MEDS: MIDAZOLAM DRIP 50 mg/50mL 50 ML IV SCH (04:45)
[2021-11-08] MEDS: MIDODRINE HCL 10 MG TAB PO SCH ×3 (06:00→17:47)
[2021-11-08] MEDS: NYSTATIN (MOUTH-THROAT) 500,000 UNITS/5 ML SUSP MT SCH ×4 (06:00→22:16)
[2021-11-08] MEDS: VANCOMYCIN HCL 125MG/5ML ORAL SOL PO SCH ×4 (06:00→17:47)
[2021-11-08] MEDS: METOCLOPRAMIDE HCL 5MG/ml INJ 2ml VIAL IV SCH ×3 (06:00→22:16)
[2021-11-08] MEDS: InsuLIN REG 1unit/0.01ml Soln (100units/ml) SC SCH ×4 (06:00→17:47)
[2021-11-08] MEDS: ACCU-CHEK COMFORT CURVE STRIP VI SCH ×5 (06:00→23:58)
[2021-11-08] MEDS: SODIUM CHLOR 0.9% PF (SALINE LOCK) 10ML VIAL/SYR IV SCH ×3 (06:00→22:16)
[2021-11-08 06:48] LABS: Albumin 1.3 g/dL (3.4-5.0); Calcium 7.8 mg/dL (8.5-10.1); Magnesium 2.9 mg/dL (1.6-2.6); Potassium 4.8 mmol/L (3.5-5.1)
[2021-11-08 06:52] LABS: BUN/Creatinine Ratio 28.3; Bilirubin, Total 1.5 mg/dL (0.2-1.0); Phosphorus 3.4 mg/dL (2.5-4.90); Total Protein 4.4 g/dL (6.4-8.2)
[2021-11-08] MEDS: cefTRIAXone 1GM/50ML D5W 50 ML IV SCH (08:47)
[2021-11-08] MEDS: CALCIUM CARB 500 MG CHEW TAB PO SCH ×2 (09:55→22:17)
[2021-11-08] MEDS: CALCIUM ACETATE 667 MG CAP PO SCH ×3 (09:55→17:30)
[2021-11-08] MEDS: MULTIPLE VITAMIN TAB PO SCH (09:55)
[2021-11-08] MEDS: PROPOFOL 100 ML IV SCH (09:56)
[2021-11-08] MEDS: fentaNYL Drip 2500mCg/250mlNS 250 ML IV SCH (10:45)
[2021-11-08] MEDS: ALBUMIN 25% 100 ML IV SCH ×2 (11:14→19:07)
[2021-11-08] MEDS: PHENYLEPHRINE INJ 80 MG in SODIUM CHL 0.9% 242 ML IV SCH (13:02)
[2021-11-08] MEDS: NOREPINEPHRINE BITARTRATE 32 MG in SODIUM CHL 0.9% 218 ML IV SCH (17:30)
[2021-11-08] MEDS ORDERED: TPN PER PHARMACY IV NR ×6 (20:00)
[2021-11-09] VITALS (72 sets, daily range): BP systolic 104–154; BP diastolic 42–57
[2021-11-09] MEDS: VANCOMYCIN HCL 125MG/5ML ORAL SOL PO SCH ×4 (00:01→18:00)
[2021-11-09] MEDS: PHENYLEPHRINE INJ 80 MG in SODIUM CHL 0.9% 242 ML IV SCH ×2 (03:27→20:05)
[2021-11-09] MEDS: ALBUMIN 25% 100 ML IV SCH (03:30)
[2021-11-09] MEDS: MIDAZOLAM DRIP 50 mg/50mL 50 ML IV SCH (04:45)
[2021-11-09 05:11] LABS: Basophils # (auto) 0 10 ^3/uL (0-0.2); Monocytes # (auto) 0 10 ^3/uL (0-1.3); Monocytes % (auto) 0.1 % (0.0-12.0)
[2021-11-09 05:14] LABS: Basophils % (auto) 0.1 % (0.0-2.0); Eosinophils % (auto) 0.5 % (0.0-7.0); Lymphocytes % (auto) 2.1 % (10.0-50.0); Neutrophils # (auto) 5.8 10 ^3/uL (1.6-8.6); Neutrophils % (auto) 97.2 % (37.0-80.0); Nucleated Red Blood Cells % 0.5 %
[2021-11-09 05:15] LABS: Eosinophils # (auto) 0 10 ^3/uL (0-0.8); Hematocrit 16.7 % (41.0-53.0); Lymphocytes # (auto) 0.1 10 ^3/uL (0.4-5.4); Mean Corpuscular Hgb Conc. 32.1 g/dL (32.0-36.0); Mean Corpuscular Volume 96.9 fL (80.0-100.0); Red Blood Cells 1.73 10^6/uL (4.5-5.90); Red Cell Distribution Width 17.8 % (11.8-14.3)
[2021-11-09 05:25] LABS: Albumin 2.4 g/dL (3.4-5.0); Calcium 8.1 mg/dL (8.5-10.1); Potassium 4.7 mmol/L (3.5-5.1)
[2021-11-09 05:27] LABS: Hemoglobin 5.4 g/dL (13.5-17.5)
[2021-11-09 05:30] LABS: Bilirubin, Total 1.8 mg/dL (0.2-1.0); Phosphorus 3.4 mg/dL (2.5-4.90); Total Protein 5.9 g/dL (6.4-8.2)
[2021-11-09 05:47] LABS: Pre Albumin 6.8 mg/dL (20.0-40.0)
[2021-11-09 05:51] LABS: BUN/Creatinine Ratio 29.3
[2021-11-09] MEDS: SODIUM CHLOR 0.9% PF (SALINE LOCK) 10ML VIAL/SYR IV SCH ×3 (06:00→21:23)
[2021-11-09] MEDS: MIDODRINE HCL 10 MG TAB PO SCH ×3 (06:57→18:00)
[2021-11-09] MEDS: NYSTATIN (MOUTH-THROAT) 500,000 UNITS/5 ML SUSP MT SCH ×4 (06:57→21:24)
[2021-11-09] MEDS: ACCU-CHEK COMFORT CURVE STRIP VI SCH ×3 (06:57→18:00)
[2021-11-09] MEDS: InsuLIN REG 1unit/0.01ml Soln (100units/ml) SC SCH ×4 (06:57→18:00)
[2021-11-09] MEDS: METOCLOPRAMIDE HCL 5MG/ml INJ 2ml VIAL IV SCH ×3 (06:57→21:23)
[2021-11-09] MEDS: CALCIUM ACETATE 667 MG CAP PO SCH ×3 (08:00→18:00)
[2021-11-09] MEDS: CALCIUM CARB 500 MG CHEW TAB PO SCH ×2 (10:00→21:25)
[2021-11-09] MEDS: MULTIPLE VITAMIN TAB PO SCH (10:00)
[2021-11-09] MEDS: fentaNYL Drip 2500mCg/250mlNS 250 ML IV SCH (10:45)
[2021-11-09] MEDS: PROPOFOL 100 ML IV SCH ×2 (11:05→14:08)
[2021-11-09] MEDS ORDERED: BUMETANIDE INJECTION 25 MG in GIVE UN-DILUTED 0 ML IV SCH (13:00)
[2021-11-09] MEDS ORDERED: VANCOMYCIN 1GM/250ML 0 ML IV ONE (13:21)
[2021-11-09] MEDS ORDERED: METOCLOPRAMIDE HCL 5MG/ml INJ 2ml VIAL ONE (13:31)
[2021-11-09] MEDS: NOREPINEPHRINE BITARTRATE 32 MG in SODIUM CHL 0.9% 218 ML IV SCH (17:45)
[2021-11-09] MEDS ORDERED: TPN PER PHARMACY IV NR ×7 (20:00)
[2021-11-10] VITALS (79 sets, daily range): BP systolic 109–138; BP diastolic 42–54
[2021-11-10] MEDS: ACCU-CHEK COMFORT CURVE STRIP VI SCH ×3 (04:15→12:00)
[2021-11-10] MEDS: MIDAZOLAM DRIP 50 mg/50mL 50 ML IV SCH (04:45)
[2021-11-10 06:01] LABS: Calcium 8.2 mg/dL (8.5-10.1); Potassium 4.8 mmol/L (3.5-5.1)
[2021-11-10 06:05] LABS: Albumin 1.9 g/dL (3.4-5.0); Magnesium 2.3 mg/dL (1.6-2.6)
[2021-11-10 06:10] LABS: Bilirubin, Total 2.2 mg/dL (0.2-1.0); Total Protein 5.2 g/dL (6.4-8.2)
[2021-11-10] MEDS: PHENYLEPHRINE INJ 80 MG in SODIUM CHL 0.9% 242 ML IV SCH (06:12)
[2021-11-10] MEDS: SODIUM CHLOR 0.9% PF (SALINE LOCK) 10ML VIAL/SYR IV SCH ×2 (06:32→14:00)
[2021-11-10] MEDS: NYSTATIN (MOUTH-THROAT) 500,000 UNITS/5 ML SUSP MT SCH ×2 (06:32→12:00)
[2021-11-10] MEDS: METOCLOPRAMIDE HCL 5MG/ml INJ 2ml VIAL IV SCH ×2 (06:32→14:00)
[2021-11-10] MEDS: VANCOMYCIN HCL 125MG/5ML ORAL SOL PO SCH ×3 (06:35→12:00)
[2021-11-10] MEDS: MIDODRINE HCL 10 MG TAB PO SCH ×2 (06:35→12:00)
[2021-11-10] MEDS: InsuLIN REG 1unit/0.01ml Soln (100units/ml) SC SCH ×3 (06:35→12:00)
[2021-11-10] MEDS: PROPOFOL 100 ML IV SCH (06:41)
[2021-11-10 06:47] LABS: BUN/Creatinine Ratio 33.6
[2021-11-10] MEDS: CALCIUM ACETATE 667 MG CAP PO SCH ×2 (08:00→12:00)
[2021-11-10 08:20] LABS: Basophils # (auto) 0 10 ^3/uL (0-0.2); Eosinophils # (auto) 0 10 ^3/uL (0-0.8); Eosinophils % (auto) 0.7 % (0.0-7.0); Lymphocytes # (auto) 0.3 10 ^3/uL (0.4-5.4); Monocytes # (auto) 0.1 10 ^3/uL (0-1.3)
[2021-11-10 08:26] LABS: Basophils % (auto) 0.6 % (0.0-2.0); Hematocrit 16.9 % (41.0-53.0); Lymphocytes % (auto) 5.8 % (10.0-50.0); Mean Corpuscular Hemoglobin 31.1 pg (28.0-32.0); Mean Corpuscular Volume 96.9 fL (80.0-100.0); Monocytes % (auto) 2.6 % (0.0-12.0); Neutrophils # (auto) 4.9 10 ^3/uL (1.6-8.6); Neutrophils % (auto) 90.3 % (37.0-80.0); Nucleated Red Blood Cells % 0.8 %; Red Blood Cells 1.74 10^6/uL (4.5-5.90); Red Cell Distribution Width 17.5 % (11.8-14.3); White Blood Cell 5.4 10^3/uL (4.4-10.8)
[2021-11-10 08:27] LABS: Hemoglobin 5.4 g/dL (13.5-17.5)
[2021-11-10] MEDS: MULTIPLE VITAMIN TAB PO SCH (10:00)
[2021-11-10] MEDS: CALCIUM CARB 500 MG CHEW TAB PO SCH (10:00)
[2021-11-10] MEDS: fentaNYL Drip 2500mCg/250mlNS 250 ML IV SCH (10:45)
[2021-11-10] MEDS ORDERED: LORazepam 2MG/ML-1ML VIAL IV PRN (18:00)
[2021-11-10] MEDS ORDERED: MORPHINE SULFATE INJECTION 2 MG/ML SYRG IV ONE (18:00)
[2021-11-10] MEDS ORDERED: MORPHINE SULFATE INJECTION 2 MG/ML SYRG IV PRN (18:00)
[2021-11-10] MEDS ORDERED: LORazepam 2MG/ML-1ML VIAL IV ONE (18:00)
[2021-11-10] MEDS ORDERED: TPN PER PHARMACY IV NR ×8 (20:00)
== END 2021-11-10 21:48 | DRG 870 ==
LOC: EDBD 21:51 → ER 21:51 → OVERFLOW 10-16 03:18 → ICU WEST 10-18 11:46 → TELE-EAST 10-24 21:43 → ICU CENTRL 10-30 05:54 → DOU IN ICU 10-30 06:00
PROVIDERS: ADMIT Nurse Practitioner Family; ATTEND Internal Medicine
PROC: 30233N1 Transfusion of Nonautologous Red Blood Cells into Peripheral Vein, Percutaneous Approach (ICD-10-PCS; 2021-10-16)
PROC: 5A1955Z Respiratory Ventilation, Greater than 96 Consecutive Hours (ICD-10-PCS; principal; 2021-10-17)
PROC: 0BH17EZ Insertion of Endotracheal Airway into Trachea, Via Natural or Artificial Opening (ICD-10-PCS; 2021-10-17)
PROC: 02HV33Z Insertion of Infusion Device into Superior Vena Cava, Percutaneous Approach (ICD-10-PCS; 2021-10-17)
PROC: B548ZZA Ultrasonography of Superior Vena Cava, Guidance (ICD-10-PCS; 2021-10-17)
PROC: 0JH63XZ Insertion of Tunneled Vascular Access Device into Chest Subcutaneous Tissue and Fascia, Percutaneous Approach (ICD-10-PCS; 2021-10-25)
PROC: 02H633Z Insertion of Infusion Device into Right Atrium, Percutaneous Approach (ICD-10-PCS; 2021-10-25)
PROC: B5181ZA Fluoroscopy of Superior Vena Cava using Low Osmolar Contrast, Guidance (ICD-10-PCS; 2021-10-25)
PROC: B548ZZA Ultrasonography of Superior Vena Cava, Guidance (ICD-10-PCS; 2021-10-25)
PROC: 5A1D70Z Performance of Urinary Filtration, Intermittent, Less than 6 Hours Per Day (ICD-10-PCS; 2021-10-26)
PROC: 5A1955Z Respiratory Ventilation, Greater than 96 Consecutive Hours (ICD-10-PCS; 2021-10-30)
PROC: 0BH17EZ Insertion of Endotracheal Airway into Trachea, Via Natural or Artificial Opening (ICD-10-PCS; 2021-10-30)
PROC: 5A12012 Performance of Cardiac Output, Single, Manual (ICD-10-PCS; 2021-10-30)
PROC: 5A1D70Z Performance of Urinary Filtration, Intermittent, Less than 6 Hours Per Day (ICD-10-PCS; 2021-10-30)
PROC: 5A1D70Z Performance of Urinary Filtration, Intermittent, Less than 6 Hours Per Day (ICD-10-PCS; 2021-11-01)
PROC: 5A1D70Z Performance of Urinary Filtration, Intermittent, Less than 6 Hours Per Day (ICD-10-PCS; 2021-11-04)
DX: A40.9 Streptococcal sepsis, unspecified (principal); I21.4 Non-ST elevation (NSTEMI) myocardial infarction; R65.21 Severe sepsis with septic shock; J96.01 Acute respiratory failure with hypoxia; U07.1 COVID-19; G92.8 Other toxic encephalopathy; J12.82 Pneumonia due to coronavirus disease 2019; D61.818 Other pancytopenia; N17.9 Acute kidney failure, unspecified; D68.9 Coagulation defect, unspecified; E87.0 Hyperosmolality and hypernatremia; E87.1 Hypo-osmolality and hyponatremia; N39.0 Urinary tract infection, site not specified; G93.1 Anoxic brain damage, not elsewhere classified; N18.5 Chronic kidney disease, stage 5; J44.0 Chronic obstructive pulmonary disease with (acute) lower respiratory infection; A04.72 Enterocolitis due to Clostridium difficile, not specified as recurrent; J95.851 Ventilator associated pneumonia; I13.2 Hypertensive heart and chronic kidney disease with heart failure and with stage 5 chronic kidney disease, or end stage renal disease; Z99.11 Dependence on respirator [ventilator] status; Z66 Do not resuscitate; I46.9 Cardiac arrest, cause unspecified; E87.8 Other disorders of electrolyte and fluid balance, not elsewhere classified; E83.51 Hypocalcemia; E87.5 Hyperkalemia; N13.9 Obstructive and reflux uropathy, unspecified; N47.1 Phimosis; D53.9 Nutritional anemia, unspecified; D75.89 Other specified diseases of blood and blood-forming organs; Z51.5 Encounter for palliative care; E83.39 Other disorders of phosphorus metabolism; H57.02 Anisocoria; D47.2 Monoclonal gammopathy; Z99.2 Dependence on renal dialysis; E11.22 Type 2 diabetes mellitus with diabetic chronic kidney disease; E11.51 Type 2 diabetes mellitus with diabetic peripheral angiopathy without gangrene; E11.649 Type 2 diabetes mellitus with hypoglycemia without coma; E78.5 Hyperlipidemia, unspecified; N32.0 Bladder-neck obstruction; Y84.8 Other medical procedures as the cause of abnormal reaction of the patient, or of later complication, without mention of misadventure at the time of the procedure; R00.1 Bradycardia, unspecified; I50.9 Heart failure, unspecified; Z87.891 Personal history of nicotine dependence; Z86.73 Personal history of transient ischemic attack (TIA), and cerebral infarction without residual deficits; Z79.899 Other long term (current) drug therapy; Z78.1 Physical restraint status; Z79.4 Long term (current) use of insulin; Y92.89 Other specified places as the place of occurrence of the external cause; Z88.0 Allergy status to penicillin; Z95.0 Presence of cardiac pacemaker
CPT/HCPCS: 36415; 36558; 36600; 70450; 71045; 74018; 76000; 76700; 76775; 76942; 77001; 80048; 80053; 80074; 80202; 80307; 80320; 81001; 82040; 82310; 82565; 82607; 82746; 82784; 82805; 82962; 83010; 83036; 83615; 83735; 83880; 83883; 84100; 84443; 84478; 84484; 85007; 85025; 85027; 85045; 85362; 85379; 85610; 85652; 85730; 86038; 86160; 86334; 86335; 86703; 86850; 86870; 86880; 86900; 86901; 86920; 87040; 87070; 87077; 87081; 87086; 87186; 87205; 87426; 87493; 90935; 92507; 92610; 92950; 93005; 93306; 93925; 94002; 94003; 94640; 94644; 95819; 96361; 96365; 96375; 97110; 97163; 99152; 99153; 99291; A4565; A4618; G0378; J0696; J1100; J1642; J1815; J2185; J2250; J2405; J2704; J3430; J3490; J7060; J7131; P9047